=== PATIENT | female | born 1990 | race African-American/Black ===

== ENCOUNTER 2023-02-09 11:42 | Emergency (ER) | payer BC, OTHER, SELFPAY ==
[2023-02-09 12:02] VITALS: BP 118/69; PULSE 87; RESP 18; TEMP 37.1; O2SAT 97; BMI 37.6
--- NOTE | 2023-02-09 12:14 | ED.GENADULT ---
HPI - General Adult General Time Seen by Provider: 12:14 Date Seen: 02/09/23 Chief complaint: Unspecified Complaint, Adult Stated complaint: pains Time Seen by Provider: 02/09/23 12:13 Source: patient and RN notes reviewed Mode of arrival: ambulatory Limitations: no limitations History of Present Illness HPI narrative: This 33-year-old female is coming to the ER with pelvic pain, post coital bleeding. She had intercourse last night, blood afterwards, she states after intercourse she will have severe anal pain as well. She denies any rectal penetration. She has history of HPV, thinks maybe her last Pap smear was in 2000 but states the HPV was cleared. She has had a total of 4 pregnancies, 3 children and 1 miscarriage. Her youngest is a toddler, was born at [facility]. She does not have a primary provider. When she has the severe pain, feels like her temperature will go up but otherwise no temperatures. She did not try to go to a clinic, has taken nothing for the pain. Sometime she will note some sense of internal pain with urination, no external symptoms with urination. She is not on any contraceptives. Outside of the HPV, she states she has not had any STIs. She is , in a stable monogamous relationship per report. She does not believe there is a chance for . Did discuss with her that we will be checking this. Stressed to her that she is not using contraceptives and there is always risk for in that situation. It is important for me to know as that could pose more of an emergent condition that we could need to treat potentially. Related Data Home Medications Medication Instructions Recorded Confirmed No Known Home Medications 02/09/23 02/09/23 Allergies Allergy/AdvReac Type Severity Reaction Status Date / Time aspirin Allergy Unknown Verified 02/09/23 12:09 nitrofurantoin Allergy Unknown Verified 02/09/23 12:09 [From Macrobid] Review of Systems Status of ROS: Reports: 6 or more systems reviewed and unremarkable except as noted in History and below Exam Const: Vital Signs, click to edit/add: Vital Signs - 24 hr 02/09/23 12:02 02/09/23 14:03 Temperature 98.7 F Pulse Rate 76 Pulse Rate [Pulse Oximeter] 87 Respiratory Rate 18 18 Blood Pressure 114/61 Blood Pressure [Ri ght Upper Arm] 118/69 Pulse Oximetry 97 98 Oxygen Delivery Me thod Room Air This is a 33-year-old female seen in exam room 4. Unfortunately due to the volume and the acuity in the ED, we had no other rooms available for her. I cannot do a pelvic or even good visualization of the perineum in this room. She is sitting in the chair, looks comfortable, no apparent distress. Speech is normal. Sclera clear. CV regular rate and rhythm, no murmur, normal S1 and S2. Lungs are clear with good air entry. Abdomen exam is limited as a really cannot lie her flat but on palpation there is really no rebound or guarding. Cannot say that I can get good feel for any true masses. Cannot do a bimanual exam or any pelvic visualization at this time. I do not feel any inguinal masses or adenopathy but again exam is limited by a patient's positioning in this chair. Documenting provider has reviewed patient's vital signs: yes Course Course ED Course: There is no room to move her to a different bed with capacity for good examination beyond what I have done. Will get basic labs, confirm negative status. Will order pelvic ultrasound. I have also reviewed with her that she really needs to follow up in clinic, records may need to be obtained, she may need to be updated on Pap smear. This is not something that I can do through the ED nor is it necessary to do through the ED. will look for urine abnormalities as well. With the pelvic imaging and the labs, we can rule out some concerning emergent issues, and if stable, will need clinic follow-up. Reevaluation(s) Time of Reevaluation #1: 14:37 Reevaluation #1: Have reviewed the pelvic ultrasound. Overall it is normal, there were 2 small fibroids which I am doubtful at this point that are causing her symptoms. She does tell me that her periods have been irregular. We did review that these can grow as people age but I still am skeptical that these are causing her current symptoms. She is willing to follow up with [facility] where she can have a dedicated pelvic exam, Pap smear which sounds like it might be indicated. I a do wonder about her not having had a Pap smear since 2000 since she has had a more recent . In any event, we have found nothing emergent, this can be further worked up and evaluated in the clinic tomorrow. Vital Signs Vital signs: Initial Vital Signs Temperature 98.7 F 02/09/23 12:02 Temperature Source Temporal Artery Scan 02/09/23 12:02 Pulse Rate 87 02/09/23 12:02 Respiratory Rate 18 02/09/23 12:02 Blood Pressure 118/69 02/09/23 12:02 Blood Pressure Mean 85 02/09/23 12:02 Blood Pressure Position Sitting 02/09/23 12:02 Pulse Oximetry 97 02/09/23 12:02 Oxygen Delivery Method Room Air 02/09/23 12:02 Vital Signs Temperature 98.7 F 02/09/23 12:02 Pulse Rate 87 02/09/23 12:02 Respiratory Rate 18 02/09/23 12:02 Blood Pressure 118/69 02/09/23 12:02 Pulse Oximetry 97 02/09/23 12:02 Oxygen Delivery Method Room Air 02/09/23 12:02 Temperature 98.7 F 02/09/23 12:02 Pulse Rate 76 02/09/23 14:03 Respiratory Rate 18 02/09/23 14:03 Blood Pressure 114/61 02/09/23 14:03 Pulse Oximetry 98 02/09/23 14:03 Oxygen Delivery Method Room Air 02/09/23 12:02 Medical Decision Making Lab Data Lab results reviewed: Yes I reviewed the patient's lab results Labs: Lab Results 02/09/23 02/09/23 Range/Units 12:48 13:00 WBC 6.16 (4.50-11.00) K/uL RBC 4.75 (4.00-5.20) m/uL Hgb 12.5 (12.0-16.0) gm/dL Hct 39.5 (33.0-51.0) % MCV 83 (80-100) fL MCH 26 (26-34) pg MCHC 32 (32-36) gm/dL RDW Coeff of [place] 13.5 (11.5-15.5) % Plt Count 215 (140-440) K/uL Neut % (Auto) 47.4 (42.0-72.0) % Lymph % (Auto) 41.2 (20-44) % [place] % (Auto) 8.8 (0.0-11.0) % Eos % (Auto) 2.1 (0.0-7.0) % Baso % (Auto) 0.3 (0.0-3.0) % Neut # (Auto) 2.92 (1.7-7.0) K/uL Lymph # (Auto) 2.54 (0.90-2.90) K/uL [place] # (Auto) 0.50 (0.00-0.90) K/UL Eos # (Auto) 0.13 (0.00-0.50) K/uL Baso # (Auto) 0.02 (0.00-0.30) K/uL Abs Immat Gran (auto) 0.01 (0.00-0.30) K/uL Imm/Tot Granulo (auto) 0.2 % Sodium 141 (135-149) mmol/L Potassium 3.8 (3.6-5.1) mmol/L Chloride 102 (96-114) mmol/L Carbon Dioxide 26 (20-32) mmol/L Anion Gap 13 (7-15) mEq/L BUN 14 (5-24) mg/dL Creatinine 0.6 (0.5-1.5) mg/dL Estimated Creat Clear 98.75 Estimated GFR 120 ml/min Glucose 115 (60-115) mg/dL Calcium 9.1 (8.4-10.6) mg/dL C-Reactive Protein < 0.5 L (0.5-1.0) mg/dL Urine Color Yellow (Yellow) Urine Appearance Clear (Clear) Urine pH 7.0 (5.0-8.5) Ur Specific [place] 1.020 (1.000-1.030) Urine Protein Negative (Negative) Urine Glucose (UA) Negative (Negative) Urine Ketones Negative (Negative) Urine Blood Negative (Negative) Urine Nitrite Negative (Negative) Urine Bilirubin Negative (Negative) Urine Urobilinogen 0.2 (0.2-1.0) Ur Leukocyte Esterase Negative (Negative) Urine RBC 0-2 (0-2) Urine WBC 0-2 (0-5) Ur Squamous Epith Cells None (None-Few) Urine Bacteria None (None) Urine HCG, Qual Negative (Negative) Imaging Data US pelvis: Attestation: I have reviewed the pertinent imaging results. Radiologist's impression: Patient: PERRY MCKNIGHT Facility:?[facility] Patient ID:?[id number] Site Patient ID:?[id number]. Site :?[id number] Study:?US Pelvis TRANSVAGINAL-02/09/2023 12:54:04 PM Ordering Physician:Magdiel Shin Final Report: INDICATION: Pelvic pain, postcoital bleeding. COMPARISON: None. TECHNIQUE: 2D beard scale and color Doppler images were acquired of the pelvis using a transvaginal approach. FINDINGS: Sonographic images demonstrate a normal size and smooth outer contour of the uterus. The uterus is anteverted in position. The uterus measures 10.0 cm in length by 6.5 cm in AP diameter by 6.3 cm in transverse dimension. There is a 1.7 cm calcified subendometrial fibroid in the midline anterior uterine body and a 0.7 cm calcified intramural fibroid in the midline posterior uterine body. The endometrial lining measures 13 mm in composite thickness. No obvious cervical mass. The right ovary measures 3.4 x 2.6 x 2.7 cm and the left ovary measures 3.4 x 1.4 x 1.5 cm. The ovaries demonstrate normal arterial and venous blood flow on color Doppler analysis. Trace free fluid in the cul-de-sac. IMPRESSION: 1. Two small uterine fibroids. 2. Exam otherwise unremarkable. Dictated by Jonna Crespo MD @ 02/09/2023 2:13:15 PM (Electronic Signature) Critical Care Time Critical Care Time Critical Care Time: No Discharge Plan Discharge Clinical Impression: Postcoital bleeding, Pelvic pain Patient Disposition: Home, Self-Care Condition: Stable Instructions: Abnormal (Dysfunctional) Uterine Bleeding (ED), Pelvic Pain in Women (ED) Additional Instructions: Follow up appointment is scheduled at the [facility] on 02/10 with a 4:15pm appointment time. If you have any questions or need to reschedule, please call [phone]. [facility] [address] [place] [address] Recommend pelvic rest until you have been further evaluated by a OB Gyne. Can try some Tylenol or ibuprofen per bottle directions for pain management if needed. It is important that you follow-up tomorrow for this appointment. You may need further testing, possibly including a Pap smear. Activity Level: Activity as Tolerated Prescriptions: No Action No Known Home Medications Follow Up/Referrals: Provider,Not a Local [Primary Care Provider] - Stand Alone Forms: [facility] Info Instructions
--- NOTE | 2023-02-09 12:20 | CRLHL7_ITS ---
For Patients: As a result of the Century Cures Act, medical imaging exams and procedure reports are released immediately into your electronic medical record. You may view this report before your referring provider. If you have questions, please contact your health care provider. INDICATION: Pelvic pain, postcoital bleeding. COMPARISON: None. TECHNIQUE: 2D beard scale and color Doppler images were acquired of the pelvis using a transvaginal approach. FINDINGS: Sonographic images demonstrate a normal size and smooth outer contour of the uterus. The uterus is anteverted in position. The uterus measures 10.0 cm in length by 6.5 cm in AP diameter by 6.3 cm in transverse dimension. There is a 1.7 cm calcified subendometrial fibroid in the midline anterior uterine body and a 0.7 cm calcified intramural fibroid in the midline posterior uterine body. The endometrial lining measures 13 mm in composite thickness. No obvious cervical mass. The right ovary measures 3.4 x 2.6 x 2.7 cm and the left ovary measures 3.4 x 1.4 x 1.5 cm. The ovaries demonstrate normal arterial and venous blood flow on color Doppler analysis. Trace free fluid in the cul-de-sac. IMPRESSION: 1. Two small uterine fibroids. 2. Exam otherwise unremarkable. Dictated by Jonna Crespo MD @ 02/09/2023 2:13:15 PM (Electronically Signed)
[2023-02-09 13:03] LABS: Basophils Absolute Auto 0.02 K/uL (0.00-0.30); Basophils Percent Auto 0.3 % (0.0-3.0); Eosinophils Absolute Auto 0.13 K/uL (0.00-0.50); Eosinophils Percent Auto 2.1 % (0.0-7.0); Hematocrit 39.5 % (33.0-51.0); Hemoglobin* 12.5 gm/dL (12.0-16.0); Immature Granulocytes Abs Auto 0.01 K/uL (0.00-0.30); Immature Granulocytes Pct Auto 0.2 %; Lymphocytes Absolute Auto 2.54 K/uL (0.90-2.90); Lymphocytes Percent Auto 41.2 % (20-44); Mean Corpuscular HGB Conc 32 gm/dL (32-36); Mean Corpuscular Hemoglobin 26 pg (26-34); Mean Corpuscular Volume 83 fL (80-100); Monocytes Percent Auto 8.8 % (0.0-11.0); Neutrophils Absolute Auto 2.92 K/uL (1.7-7.0); Neutrophils Percent Auto 47.4 % (42.0-72.0); Platelet Count* 215 K/uL (140-440); RDW Coefficient of Variation % 13.5 % (11.5-15.5); Red Blood Count 4.75 m/uL (4.00-5.20); White Blood Count* 6.16 K/uL (4.50-11.00)
[2023-02-09 13:08] LABS: Slide Review Reflex No
[2023-02-09 13:08] LABS: Appearance Urine Clear (Clear); Bilirubin Urine Negative (Negative); Blood Urine Negative (Negative); Color Urine Yellow (Yellow); Glucose Urine Negative (Negative); Ketones Urine Negative (Negative); Leukocyte Esterase Urine Negative (Negative); Nitrite Urine Negative (Negative); Protein Urine Negative (Negative); Urobilinogen Urine 0.2 (0.2-1.0)
[2023-02-09 13:14] LABS: Chloride* 102 mmol/L (96-114); Potassium* 3.8 mmol/L (3.6-5.1); Sodium* 141 mmol/L (135-149)
[2023-02-09 13:16] LABS: Creatinine* 0.6 mg/dL (0.5-1.5); Est. Creatinine Clearance* 98.75; Estimated Glomerular Filt Rate 120 ml/min
[2023-02-09 13:17] LABS: Anion Gap 13 mEq/L (7-15); Blood Urea Nitrogen* 14 mg/dL (5-24); Carbon Dioxide* 26 mmol/L (20-32); Glucose* 115 mg/dL (60-115)
[2023-02-09 13:18] LABS: Calcium* 9.1 mg/dL (8.4-10.6)
[2023-02-09 13:18] LABS: RBC Urine 0-2 (0-2); WBC Urine 0-2 (0-5)
[2023-02-09 13:31] LABS: C Reactive Protein* < 0.5 mg/dL (0.5-1.0)
[2023-02-09 14:03] VITALS: BP 114/61; PULSE 76; RESP 18; O2SAT 98
[2023-02-09 14:11] LABS: Ur HCG Qualitative* Negative (Negative)
== END 2023-02-09 14:48 | disposition home or self-care (01) ==
PROVIDERS: Emergency Provider Family Medicine
DX: N93.0 Postcoital and contact bleeding (principal); R10.2 Pelvic and perineal pain
CPT/HCPCS: 36415; 76830; 80048; 81001; 81025; 85025; 86140; 93976; 99283; 99284

== ENCOUNTER 2023-02-10 16:35 | Outpatient (CLI) | payer BC, OTHER, SELFPAY ==
[2023-02-10 21:13] LABS: Chlamydia DNA Amplified* NOT DETECTED (No Detected); GC DNA Amplified* NOT DETECTED (No Detected)
== END 2023-02-10 16:36 | disposition home or self-care (01) ==
PROVIDERS: Visit Provider Physician Assistant
DX: N93.0 Postcoital and contact bleeding (principal)
CPT/HCPCS: 87109; 87491; 87591

== ENCOUNTER 2023-06-09 13:15 | Outpatient (RCR) | payer OTHER, BC, SELFPAY | END 2023-10-07 23:59 | disposition home or self-care (01) | PROVIDERS: PCP Podiatrist; Visit Provider Podiatrist | DX: M79.671 Pain in right foot (principal); Z87.828 Personal history of other (healed) physical injury and trauma; Z51.89 Encounter for other specified aftercare | CPT/HCPCS: 97110; 97112; 97161 ==

== ENCOUNTER 2023-08-07 21:47 | Emergency (ER) | payer BC, MEDICAID, SELFPAY ==
[2023-08-07 21:54] VITALS: BP 128/83; PULSE 78; RESP 16; TEMP 37.1; O2SAT 100; BMI 35.9
[2023-08-07 22:03] LABS: Appearance Urine Clear (Clear); Bilirubin Urine Negative (Negative); Blood Urine Negative (Negative); Color Urine Yellow (Yellow); Glucose Urine Negative (Negative); Ketones Urine Negative (Negative); Leukocyte Esterase Urine Negative (Negative); Nitrite Urine Negative (Negative); Protein Urine Negative (Negative); Urobilinogen Urine 0.2 (0.2-1.0)
--- NOTE | 2023-08-07 22:11 | ED_ITS ---
HPI - Abdominal Pain General Chief Complaint: Abdominal Pain Stated Complaint: Abdominal Pain Time Seen by Provider: 08/07/23 22:01 History of Present Illness HPI narrative: Patient is a 33-year-old woman who is 10 weeks with her 4th child. She has been having some dysuria for the last 3 weeks but no overt abdominal pain no incontinence no fever chills. She has had no vaginal bleeding. She has had no other related symptoms. Tonight she feels like her urine is more frequent and the dysuria remains. She otherwise feels well but is concerned about a urinary infection. Related Data Home Medications Medication Instructions Recorded Confirmed calcium polycarbophil 625 mg 1,250 mg PO BID PRN 03/28/23 03/28/23 tablet (FiberCon) Previous Rx's Medication Instructions Recorded lidocaine 5 % topical ointment 1 applic topical QID PRN pain #30 02/26/23 grams Allergies Allergy/AdvReac Type Severity Reaction Status Date / Time aspirin Allergy Unknown Verified 03/28/23 11:07 nitrofurantoin Allergy Unknown Verified 03/28/23 11:07 [From Macrobid] Review of Systems Status of ROS Reports: 10 or more systems reviewed and unremarkable except as noted in History and below PFSH PFSH Surgical History History of ?Z98.891 - History of uterine scar from previous surgery (ICD-10) Social History Narrative: , 3 children. Nonsmoker, no alcohol use Smoking Status: Never smoker Do you use any of these nicotine containing products: None Non-prescribed substance use: denies use Exam Narrative: Exam Narrative: EXAM GENERAL: Patient appears comfortable and well. EYES: No scleral icterus. LYMPH: No supraclavicular or cervical lymphadenopathy. SKIN: Visible skin seen during exam normal or with benign process only. EXT: No dependent lower extremity pedal edema. HEART: Regular rate and rhythm with no murmurs, rubs, or gallops. LUNGS: Clear to auscultation bilaterally with no crackles or wheezes. ABD: Soft, non tender, non distended. PSYCH: Good eye contact, speech is not pressured. Const: Vital Signs, click to edit/add: Vital Signs - 24 hr 08/07/23 21:54 Temperature 98.7 F Pulse Rate [Pulse Oximeter] 78 Respiratory Rate 16 Blood Pressure [Le ft Upper Arm] 128/83 Pulse Oximetry 100 Oxygen Delivery Me thod Room Air Course Course ED Course: Patient seen examined. UA ordered. Vital Signs Vital signs: Initial Vital Signs Temperature 98.7 F 08/07/23 21:54 Temperature Source Temporal Artery Scan 08/07/23 21:54 Pulse Rate 78 08/07/23 21:54 Respiratory Rate 16 08/07/23 21:54 Blood Pressure 128/83 08/07/23 21:54 Blood Pressure Mean 98 08/07/23 21:54 Blood Pressure Position Sitting 08/07/23 21:54 Pulse Oximetry 100 08/07/23 21:54 Oxygen Delivery Method Room Air 08/07/23 21:54 Vital Signs Temperature 98.7 F 08/07/23 21:54 Pulse Rate 78 08/07/23 21:54 Respiratory Rate 16 08/07/23 21:54 Blood Pressure 128/83 08/07/23 21:54 Pulse Oximetry 100 08/07/23 21:54 Oxygen Delivery Method Room Air 08/07/23 21:54 Temperature 98.7 F 08/07/23 21:54 Pulse Rate 78 08/07/23 21:54 Respiratory Rate 16 08/07/23 21:54 Blood Pressure 128/83 08/07/23 21:54 Pulse Oximetry 100 08/07/23 21:54 Oxygen Delivery Method Room Air 08/07/23 21:54 MDM - Abdominal Pain MDM Narrative Medical decision making narrative: Patient is a 33-year-old woman and currently with her 4th child. She comes in with dysuria and her urinalysis is unremarkable. My exam is normal her vital signs are normal. She has no tenderness to palpation of her abdomen and no vaginal bleeding or discharge. At this time reassurance is offered. Differential diagnosis includes but not limited to pyelonephritis urinary tract infection complication overt abdominal pain. Lab Data Labs: Lab Results 08/07/23 Range/Units 21:57 Urine Color Yellow (Yellow) Urine Appearance Clear (Clear) Urine pH 6.0 (5.0-8.5) Ur Specific [place] 1.020 (1.000-1.030) Urine Protein Negative (Negative) Urine Glucose (UA) Negative (Negative) Urine Ketones Negative (Negative) Urine Blood Negative (Negative) Urine Nitrite Negative (Negative) Urine Bilirubin Negative (Negative) Urine Urobilinogen 0.2 (0.2-1.0) Ur Leukocyte Esterase Negative (Negative) Urine RBC 0-2 (0-2) Urine WBC 0-2 (0-5) Ur Squamous Epith Cells Few (None-Few) Urine Bacteria None (None) Discharge Plan Discharge Clinical Impression: Patient Disposition: Home, Self-Care Condition: Stable Instructions: at 11 to 14 Weeks (ED) Additional Instructions: Follow-up with your OBGYN this week. Activity Level: No Restrictions Discharge Diet: Regular Prescriptions: No Action lidocaine 5 % ointment 1 applic topical QID PRN (Reason: pain) Qty: 30 0RF calcium polycarbophil [FiberCon] 625 mg tablet 1,250 mg PO BID PRN Follow Up/Referrals: Provider,Not a Local [Primary Care Provider] - Stand Alone Forms: My[facility] Info Instructions
[2023-08-07 22:28] LABS: RBC Urine 0-2 (0-2); Squamous Epithelial Cell Urine Few (None-Few); WBC Urine 0-2 (0-5)
== END 2023-08-07 22:37 | disposition home or self-care (01) ==
PROVIDERS: Emergency Provider Internal Medicine
DX: R30.0 Dysuria (principal); Z3A.10 10 weeks gestation of pregnancy
CPT/HCPCS: 81001; 99283

== ENCOUNTER 2024-02-03 08:21 | Outpatient (CLI) | payer BC, MEDICAID, SELFPAY | END 2024-02-03 08:22 | disposition home or self-care (01) | LOC: AMB 02-06 17:13 | PROVIDERS: Visit Provider Family Medicine | DX: O60.10X0 Preterm labor with preterm delivery, unspecified trimester, not applicable or unspecified (principal); Z3A.37 37 weeks gestation of pregnancy | CPT/HCPCS: A0425; A0427 ==

== ENCOUNTER 2024-08-01 20:24 | Emergency (ER) | payer BC, MEDICAID, SELFPAY ==
--- OUTSIDE RECORDS SUMMARY | 2024-08-01 20:27 | XMS_ITS | Encounter Summary ---
Author Organization [facility] Address [address] [place] [address]. [place] [address] Care Team Providers Care Salsa Dance Instructor Name Role Phone Tejal Chen APRN INDUSTRIAL AUTOMATION ENGINEER Unavaila ble Balbir Talamantes MD Unavailable [phone] Geremias Blackwell MD Primary Care Provider [phone] Geremias Blackwell MD Unavailable [phone] Kwame Chandler MD Unavailable [phone] Kwame Chandler MD Unavailable [phone] Althea Carroll NP Unavailable Michelle Dasilva RN Unavailable Unavailab le Encounter Details Date Type Department Care Team (Late st Contact Info) Description 08/26/2023 [facility] Medical Advice [facility] [address] [place] [phone] Rowan Shelton, RN Social History Tobacco Use Types Packs/Day Years Used Date Smoking Tobacco: Never Smokeless Tobacco: Never Alcohol Use Standard Drinks/Week Comments No 0 (1 standard drink = 0.6 oz pur e alcohol) AUDIT-C Answer Date Recorded Frequency of Alcohol Consumption Never 07/08/2018 Average Number of Drinks Not on file 019 Frequency of Binge Drinking Not on file 06/12 PHQ-2 Answer Date Recorded PHQ-2 Score 0 04/08/2022 [place] Depression Scale Answer Date Recorded Last EPDS Total Score Not on file 06/28/2021 The thought of harming myself has occurred to me . 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 Not on file Not on file documented as of this encounter Plan of Treatment Not on file documented as of this encounter Visit Diagnoses Not on filedocumented in this encounter Additional Health Concerns Infection Onset Date Last Indicated Resolved Time Rule Out COVID-19 10/23/2023 10/23/2023 10/24/2023 11:55 AM CDT Assessment Noted Time PHQ-9 Depression Total Score: 5 08/10/19 22 4:13 PM CDT documented as of this encounter Care Teams Salsa Dance Instructor Relationship Specialty Start Date End Date Geremias Blackwell MD [address] [place] [address] [address] [place] [phone] PCP - General Internal Medicine 04/08/22 Tejal Chen APRN INDUSTRIAL AUTOMATION ENGINEER [address] [place] [address] [address] [place], [place] [id number] Nurse Practitioner Nurse Practitioner 04/29/19 Balbir Talamantes MD [address] [place], [place] [address] Neurology 07/20/20 Geremias Blackwell MD [address] [place] [address] [address] [place] [phone] Assigned PCP 04/19/22 Kwame Chandler MD [address] [facility] [address] [place] [address] judicial assistant 08/25/23 Kwame Chandler MD [address] [facility] [address] [place] [address] Assigned OBGYN Provider 10/04/23 Althea Carroll NP [address] [place] [address] [id number] [place] [address] Assigned Pediatric Specialist Provider 02/03/24 Michelle Dasilva, RN Lead Architect [employer] 02/08/24 02/22/24 documented as of this encounter
--- OUTSIDE RECORDS SUMMARY | 2024-08-01 20:27 | XMS_ITS | Encounter Summary ---
Author Organization [facility] Address [address] [place] [address] Care Team Providers Care Women Specialist Name Role Phone Kwame Chandler MD Primary Care Provider + [phone] Tejal Chen APRN CASE MANAGERS Unavaila ble Kwame Chandler MD Unavailable + [phone] Torri Donis PA-C Unavailable [phone] Balbir Talamantes MD Unavailable [phone] Jimmy Ayala MD Unavailable Karolina Zhao-C Unavailable Catracho Domingo MD Unavailable Unavailable Karolina ZhaoC Unavailable Nevaeh Gutierres-C Unavailable [phone] Geremias Blackwell MD Primary Care Provider [phone] Geremias Blackwell MD Unavailable [phone] Kwame Chandler MD Unavailable + [phone] Kwame Chandler MD Unavailable + 11 Althea Carroll NP Unavailable Michelle Dasilva RN Unavailable Unavailab le Encounter Details Date Type Department Care Team (Late st Contact Info) Description 02/17/2021 Documentation Only INTERFACED REPORT Unknown, Provider Social History Tobacco Use Types Packs/Day Years Used Date Smoking Tobacco: Never Smokeless Tobacco: Never Alcohol Use Standard Drinks/Week Comments No 0 (1 standard drink = 0.6 oz pur e alcohol) AUDIT-C Answer Date Recorded Frequency of Alcohol Consumption Never 07/08/2018 Average Number of Drinks Not on file 019 Frequency of Binge Drinking Not on file 06/12 PHQ-2 Answer Date Recorded PHQ-2 Score 4 03/31/2024 [place] Depression Scale Answer Date Recorded [place] Depression Scale Total 13 03/28/2024 The thought of harming myself has occurred to me . Hardly ever 03/28/2024 Adolescent Education Answer Date Record ed Getting School Help Needed Not on file 01/02 Food Insecurity Answer Date Recorded Within the past 12 months, d id you worry that your food would run out before you got money to buy more? No 02/03/2024 Within the past 12 months, d id the food you bought just not last and you didn t have money to get more? No 02/03/2024 Housing Stability Answer Date Recorded Do you have housing? (Lisandra g is defined as stable permanent housing and does not include staying ouside in a car, in a tent, in an abandoned building, in an overnight mcc, or couch-surfing.) No 02/03/2024 Are you worried about losing your housing? No 02/03/2024 Financial Resource Strain Answer Date R ecorded Within the past 12 months, h ave you or your family members you live with been unable to get utilities (heat, electricity) when it was really needed? No 02/03/2024 Transportation Needs Answer Date Record ed Within the past 12 months, h as lack of transportation kept you from medical appointments, getting your medicines, non-medical meetings or appointments, work, or from getting things that you need? No 02/03/2024 Interpersonal Safety Answer Date Record ed Do you feel physically and e motionally safe where you currently live? Yes 02/03/2024 Within the past 12 months, h ave you been hit, slapped, kicked or otherwise physically hurt by someone? No 02/03/2024 Within the past 12 months, h ave you been humiliated or emotionally abused in other ways by your partner or ex-partner? 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 No / Unsure 04/08/2022 10:39 AM PRINCIPAL SYSTEMS ENGINEER documented as of this encounter Plan of Treatment Not on file documented as of this encounter Visit Diagnoses Not on filedocumented in this encounter Additional Health Concerns Infection Onset Date Last Indicated Resolved Time Rule Out COVID-19 10/23/2023 10/23/2023 10/24/2023 11:55 AM CDT documented as of this encounter Care Teams Women Specialist Relationship Specialty Start Date End Date Kwame Chandler MD PCP - General sap fico business analyst 12/08/18 04/07/22 Geremias Blackwell MD [address] [place] [address] 220 [place] [address] PCP - General Internal Medicine 04/08/22 Tejal Chen APRN CASE MANAGERS [address] [place] [address] 450 [place], [place] [address] Nurse Practitioner Nurse Practitioner 04/29/19 Kwame Chandler MD Assigned OBGYN Provider 02/03/20 Torri Donis, PALeidyC [address] 315 [place] [address] Assigned Surgical Provider 06/27/20 07/27/21 Balbir Talamantes MD 909 [place] [address] Neurology 07/20/20 Jimmy Ayala MD [address] [place] [address] Assigned Neuroscience Provider 07/29/20 01/24/22 Karolina Zhao PA-C [address] [place] [address] Assigned PCP 11/18/20 03/16/21 Catracho Domingo MD Assigned PCP 03/17/21 04/13/21 Karolina Zhao PA-C [address] [place] [address] Assigned PCP 04/14/21 04/18/22 Nevaeh Gutierres PA-C [facility] [address] [place] [address] Assigned Neuroscience Provider 01/25/22 06/06/22 Geremias Blackwell MD [address] [place] [address] 220 [place] [address] Assigned PCP 04/19/22 Kwame Chandler MD [address] [facility] 100 [place] [address] sap fico business analyst 08/25/23 Kwame Chandler MD [address] [facility] [address] [place] [address] Assigned OBGYN Provider 10/04/23 Althea Carroll NP [address] [place] [address] [address] [place] [address] Assigned Pediatric Specialist Provider 02/03/24 Michelle Dasilva, RN Lead Colorman 02/08/24 02/22/24 documented as of this encounter
--- OUTSIDE RECORDS SUMMARY | 2024-08-01 20:27 | XMS_ITS | Encounter Summary ---
Author Organization [facility] Address [address] [place] [address] Care Team Providers Care Arc Air Operator Name Role Phone Kwame Chandler MD Primary Care Provider [phone] Tejal Chen APRN DRILL INSTRUCTOR Unavaila ble Cheyenne Yeh BUSINESS DEVELOPMENT INTERN Unavailable [phone] Jennifer Cain CHW Unavailable [phone] Shruthi Alberto Unavailable Unavailable Kwame Chandler MD Unavailable [phone] Torri DonisC Unavailable [phone] Balbir Talamantes MD Unavailable [phone] Jimym Ayala MD Unavailable Catracho Domingo MD Unavailable Unavailable Chelsie Gallardo APRN DRILL INSTRUCTOR Unavailable Un available Karolina ZhaoC Unavailable Catracho Domingo MD Unavailable Unavailable Karolina ZhaoC Unavailable Nevaeh Gutierres-C Unavailable [phone] Geremias Blackwell MD Primary Care Provider Geremias Blackwell MD Unavailable [phone] Kwame Chandler MD Unavailable [phone] Kwame Chandler MD Unavailable [phone] Althea Carroll NP Unavailable Michelle Dasilva RN Unavailable Unavailab le Encounter Details Date Type Department Care Team (Late st Contact Info) Description 08/27/2019 MyC Medical Advice [facility]'s [facility] [address] [place] [address] Kwame Chandler MD [address] [place] [address] Social History Tobacco Use Types Packs/Day Years Used Date Smoking Tobacco: Never Smokeless Tobacco: Never Alcohol Use Standard Drinks/Week Comments No 0 (1 standard drink = 0.6 oz pur e alcohol) AUDIT-C Answer Date Recorded Frequency of Alcohol Consumption Never 07/08/2018 Average Number of Drinks Not on file 019 Frequency of Binge Drinking Not on file 06/12 PHQ-2 Answer Date Recorded PHQ-2 Score 2 06/16/2019 [place] Depression Scale Answer Date Recorded [place] Depression Score 15 01/07/2019 Last EPDS Self Harm Result Not on file 01/07 Comments No Sex and Gender Information Value Date Recorded Sex Assigned at Female 07/10/2018 9:24 AM CDT Legal Sex Female 8:37 AM CDT Gender Identity Female 07/10/2018 9:24 AM CDT Sexual Orientation Choose not to disclose 2018 9:24 AM CDT 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 No / Unsure 08/30/2019 12:51 PM CDT documented as of this encounter Plan of Treatment Not on file documented as of this encounter Visit Diagnoses Not on filedocumented in this encounter Additional Health Concerns Infection Onset Date Last Indicated Resolved Time Rule Out COVID-19 10/23/2023 10/23/2023 10/24/2023 11:55 AM CDT documented as of this encounter Care Teams Arc Air Operator Relationship Specialty Start Date End Date Kwame Chandler MD PCP - General senior staff psychologist 12/08/18 04/07/22 Geremias Blackwell MD [address] [place] [address] PCP - General Internal Medicine 04/08/22 Tejal Chen, RISK CONTROL FIELD REPRESENTATIVE DRILL INSTRUCTOR [address] [id number] Nurse Practitioner Nurse Practitioner 04/29/19 Cheyenne Yeh, BUSINESS DEVELOPMENT INTERN [address] [id number] Lead Control Equipment Electrician Primary Care - CC 01/27/2003/13 Jennifer Cain, [facility] Community Health Worker Primary Care - CC 01/27/20 Shruthi Alberto Other (see comments) 01/30/20 03/25/20 Kwame Chandler MD Assigned OBGYN Provider 02/03/20 Torri Donis, PA-C [address] [place] [address] Assigned Surgical Provider 06/27/20 07/27/21 Balbir Talamantes MD [address] [place] [address] Neurology 07/20/20 Jimmy Ayala MD [address] [place] [address] Assigned Neuroscience Provider 07/29/20 01/24/22 Catracho Domingo MD Assigned PCP 06/21/20 10/25/20 Chelsie Gallardo APRN DRILL INSTRUCTOR Assigned PCP 10/26/20 11/17/20 Karolina Zaho PA-C [address] [place] [address] Assigned PCP 11/18/20 03/16/21 Catracho Domingo MD Assigned PCP 03/17/21 04/13/21 aKrolina Zhao PA-C [address] [place] [address] Assigned PCP 04/14/21 04/18/22 Nevaeh Gutierres PA-C [facility] [address] [place] [address] Assigned Neuroscience Provider 01/25/22 06/06/22 Geremias Blackwell MD [address] [place] [address] 220 [place] [address] Assigned PCP 04/19/22 Kwame Chandler MD [address] [address] senior staff psychologist 08/25/23 Kwame Chandler MD [address] [address] Assigned OBGYN Provider 10/04/23 Althea Carroll NP [address] [place] [address] [address] [place] [address] Assigned Pediatric Specialist Provider 02/03/24 Michelle Dasilva, RN Lead Control Equipment Electrician 02/08/24 02/22/24 documented as of this encounter
--- OUTSIDE RECORDS SUMMARY | 2024-08-01 20:27 | XMS_ITS | Encounter Summary ---
Author Organization [facility] Address [address] [place] [address]. [place] [address] Care Team Providers Care Sleeping Bag Filler Name Role Phone Tejal Chen APRN CODING QUALITY ANALYST Unavaila ble Balbir Talamantes MD Unavailable [phone] Geremias Blackwell MD Primary Care Provider [phone] Geremias Blackwell MD Unavailable [phone] Kwame Chandler MD Unavailable [phone] Kwame Chandler MD Unavailable [phone] Althea Carroll NP Unavailable Michelle Dasilva RN Unavailable Unavailab le Encounter Details Date Type Department Care Team (Late st Contact Info) Description 08/26/2023 [facility] Medical Advice [facility] Women's [address] [place] [address] Ivelisse Burnett, RN Social History Tobacco Use Types Packs/Day [...] Answer Date Recorded PHQ-2 Score 0 04/08/2022 [place] Depression Scale Answer Date Recorded Last EPDS [...] 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 Not [...] documented as of this encounter Care Teams Sleeping Bag Filler Relationship Specialty Start Date End Date Geremias Blackwell MD [address] [place] [address] 220 [place] [address] PCP - General Internal Medicine 04/08/22 Tejal Chen APRN CODING QUALITY ANALYST 420 [facility] 450 [place], [place] [address] Nurse Practitioner Nurse Practitioner 04/29/19 Balbir Talamantes MD 909 [place], [place] [address] Neurology 07/20/20 Geremias Blackwell MD [address] [place] [address] 220 [place] [address] Assigned PCP 04/19/22 Kwame Chandler MD [facility] [address] [facility] 100 [place] [address] surveyor's assistant 08/25/23 Kwame Chandler MD [address] [facility] 100 [place] [address] Assigned OBGYN Provider 10/04/23 Althea Carroll NP [address] [place] [address] [address] [place] [address] Assigned Pediatric Specialist Provider 02/03/24 Michelle Dasilva, RN Lead Oven Technician 02/08/24 02/22/24 documented as of this encounter
--- OUTSIDE RECORDS SUMMARY | 2024-08-01 20:27 | XMS_ITS | Encounter Summary ---
Author Organization [facility] Address [address] [place] [address]. [place] [address] Care Team Providers Care Instruction Dean Name Role Phone Tejal Chen APRN INSTALLATION TECHNICIAN Unavaila ble Balbir Talamantes MD Unavailable [phone] Geremias Blackwell MD Primary Care Provider [phone] Geremias Blackwell MD Unavailable [phone] Kwame Chandler MD Unavailable [phone] Kwame Chandler MD Unavailable [phone] Althea Carroll NP Unavailable Reason for Visit * Reason Onset Date Comments Pt. Information/instruction 06/01/2024 Encounter Details Date Type Department Care Team (Late st Contact Info) Description 06/01/2024 Telephone [facility] [address] [place] [address] Kwame Chandler MD [address] [place] [address] Pt. Information/instructio n Social History Tobacco Use Types Packs/Day Years [...] Answer Date Recorded PHQ-2 Score 4 03/31/2024 [place] Depression Scale Answer Date Recorded [place] Depression Scale Total 13 03/28/2024 The thought [...] in an abandoned building, in an overnight long term, or couch-surfing.) No 02/03/2024 Are you worried [...] your partner or ex-partner? No 02/03/2024 Comments No Sex and Gender Information Value Date Recorded Sex Assigned at Female 07/10/2018 9:24 AM CDT Legal Sex Female 8:37 AM CDT Gender Identity Female 07/10/2018 9:24 AM CDT Sexual Orientation Choose not to disclose 2018 9:24 AM CDT Occupation Industry Job Start Date Job End Date [employer] Not on file Not on file Not on file documented as of this encounter Miscellaneous Notes * Telephone Encounter - Ira Gale - 06/01/2024 1:14 PM CST [facility] Phone Message May a detailed message be left on voicemail: yes Reason for Call: Kalina from [facility] uzma wanting to leave her contact info regarding pt if clinic has any case management needs. Number [phone] and fax [phone]. Thanks Action Taken: Message routed to: Other: [facility] Travel Screening: Not Applicable GER APPLICATION documented in this encounter Plan of Treatment Not on file documented as of this encounter Visit Diagnoses Not on filedocumented in this encounter Additional Health Concerns Assessment Noted Time PHQ-9 Depression Total Score: 17 024 11:20 AM MANAGER APPLICATION documented as of this encounter Care Teams Instruction Dean Relationship Specialty Start Date End Date Geremias Blackwell MD [address] [place] [address] 220 [place] [address] PCP - General Internal Medicine 04/08/22 Tejal Chen APRN INSTALLATION TECHNICIAN [address] [place] [address] 450 [place], [place] [address] Nurse Practitioner Nurse Practitioner 04/29/19 Balbir Talamantes MD 909 [place], [place] [address] Neurology 07/20/20 Geremias Blackwell MD [address] [place] [address] 220 [place] [address] Assigned PCP 04/19/22 Kwame Chandler MD [address] [facility] 100 [place] [address] bow maker machine tender 08/25/23 Kwame Chandler MD [address] [address] Assigned OBGYN Provider 10/04/23 [place] [address] [place] [address] [address] [place] [address] Assigned Pediatric Specialist Provider 02/03/24 documented as of this encounter
--- OUTSIDE RECORDS SUMMARY | 2024-08-01 20:27 | XMS_ITS | Encounter Summary ---
Author Organization [facility] Address [address] [place] [address]. [place] [address] Care Team Providers Care Machinist Name Role Phone Tejal Chen APRN REFRIGERATOR CRATER Unavaila ble Balbir Talamantes MD Unavailable [phone] Geremias Blackwell MD Primary Care Provider [phone] Geremias Blackwell MD Unavailable [phone] Kwame Chandler MD Unavailable [phone] Kwame Chandler MD Unavailable [phone] Althea Carroll NP Unavailable Michelle Dasilva RN Unavailable Unavailab le Encounter Details Date Type Department Care Team (Late st Contact Info) Description 11/25/2023 [facility] Medical Advice [facility] [address] [place] [address] Ivelisse Burnett, RN Social History Tobacco Use [...] PHQ-2 Answer Date Recorded PHQ-2 Score 0 09/25/2023 [place] Depression Scale Answer Date Recorded Last EPDS [...] Industry Job Start Date Job End Date [employer] Not on file Not on file Not on file documented as of this encounter Plan of Treatment Not on file documented as of this encounter Visit Diagnoses Not on filedocumented in this encounter Additional Health Concerns Assessment Noted Time PHQ-9 Depression Total Score: 5 08/10/19 22 4:13 PM CDT documented as of this encounter Care Teams Machinist Relationship Specialty Start Date End Date Geremias Blackwell MD [address] [place] [address] 220 [place] [phone] PCP - General Internal Medicine 04/08/22 Tejal Chen APRN REFRIGERATOR CRATER [address] [place] [address] 450 [place], [place] [address] Nurse Practitioner Nurse Practitioner 04/29/19 Balbir Talamantes MD 909 [place], [place] [address] Neurology 07/20/20 Geremias Blackwell MD [address] [place] [address] 220 [place] [address] Assigned PCP 04/19/22 Kwame Chandler MD [address] [facility] 100 [place] [address] trade union secretary 08/25/23 Kwame Chandler MD [address] [facility] [address] [place] [address] Assigned OBGYN Provider 10/04/23 Althea Carroll NP [address] [id number] [place], [place] [address] Assigned Pediatric Specialist Provider 02/03/24 Michelle Dasilva, RN Lead Paper Machine Tender 02/08/24 02/22/24 documented as of this encounter
--- OUTSIDE RECORDS SUMMARY | 2024-08-01 20:27 | XMS_ITS | Encounter Summary ---
Author Organization [facility] Address [address] [place] [address] Care Team Providers Care Psychiatric Technician Assistant Name Role Phone Kwame Chandler MD Primary Care Provider + [phone] Tejal Chen APRN SALES PRODUCT MANAGER Unavaila ble Kwame Chandler MD Unavailable + [phone] Torri Donis PA-C Unavailable [phone] Balbir Talamantes MD Unavailable [phone] Jimmy Ayala MD Unavailable Catracho Domingo MD Unavailable Unavailable Chelsie Gallardo APRN SALES PRODUCT MANAGER Unavailable Un available Karolina ZhaoC Unavailable Catracho Domingo MD Unavailable Unavailable Karolina Zhao-C Unavailable Nevaeh Gutierres PA-C Unavailable [phone] Geremias Blackwell MD Primary Care Provider [phone] Geremias Blackwell MD Unavailable [phone] Kwame Chandler MD Unavailable + [phone] Kwame Chandler MD Unavailable + 11 Althea Carroll NP Unavailable Michelle Dasilva RN Unavailable Unavailab le Encounter Details Date Type Department Care Team (Late st Contact Info) Description 08/27/2020 MyC Medical Advice [facility] [address] [facility] [address] [place] [address] Kisha Pennington RN Social History Tobacco Use Types Packs/Day [...] PHQ-2 Answer Date Recorded PHQ-2 Score 0 07/11/2020 [place] Depression Scale Answer Date Recorded [place] Depression Score 15 01/07/2019 Last EPDS Self [...] have Coronavirus / COVID-19? No / Unsure 08/29/2020 1:18 PM CDT documented as of this encounter Plan of Treatment Not on file documented as of this encounter Visit Diagnoses Not on filedocumented in this encounter Additional Health Concerns Infection Onset Date Last Indicated Resolved Time Rule Out COVID-19 10/23/2023 10/23/2023 10/24/2023 11:55 AM CDT documented as of this encounter Care Teams Psychiatric Technician Assistant Relationship Specialty Start Date End Date Kwame Chandler MD PCP - General mechanic sound technician 12/08/18 04/07/22 Geremias Blackwell MD [address] [place] [address] [address] [place] [address] PCP - General Internal Medicine 04/08/22 Tejal Chne APRN SALES PRODUCT MANAGER [address] [place] [address] 450 [place] [address] Nurse Practitioner Nurse Practitioner 04/29/19 Kwame Chandler MD Assigned OBGYN Provider 02/03/20 Torri Donis PA-C [address] 315 [place] [address] Assigned Surgical Provider 06/27/20 07/27/21 Balbir Talamantes MD [address] [place] [address] Neurology 07/20/20 Jimmy Ayala MD 6545 [place] [address] Assigned Neuroscience Provider 07/29/20 01/24/22 Catracho Domingo MD Assigned PCP 06/21/20 10/25/20 Chelsie Gallardo APRN SALES PRODUCT MANAGER Assigned PCP 10/26/20 11/17/20 Karolina Zhao PA-C [address] [place] [address] Assigned PCP 11/18/20 03/16/21 Catracho Domingo MD Assigned PCP 03/17/21 04/13/21 Karolina Zhao PA-C [address] [place] [address] Assigned PCP 04/14/21 04/18/22 Nevaeh Gutierres PA-C [facility] [address] [facility] [place] [address] Assigned Neuroscience Provider 01/25/22 06/06/22 Geremias Blackwell MD [address] [place] [address] 220 [place] [address] Assigned PCP 04/19/22 Kwame Chandler MD [address] [address] mechanic sound technician 08/25/23 Kwame Chandler MD [address] [address] Assigned OBGYN Provider 10/04/23 Althea Carroll NP [facility] [place] [address] [place], [place] [address] Assigned Pediatric Specialist Provider 02/03/24 Michelle Dasilva, RN Lead Cafe Worker 02/08/24 02/22/24 documented as of this encounter
--- OUTSIDE RECORDS SUMMARY | 2024-08-01 20:27 | XMS_ITS | Encounter Summary ---
Author Organization [facility] Address [address] [place] [address] Care Team Providers Care Rehabilitation Aide Name Role Phone Kwame Chandler MD Primary Care Provider [phone] Tejal Chen APRN IT HELP DESK ASSOCIATE Unavaila ble Cheyenne Yeh POLYGRAPH EXAMINER Unavailable [phone] Jennifer Cain CHW Unavailable [phone] Shruthi Alberto Unavailable Unavailable Kwame Chandler MD Unavailable [phone] Torri DonisC Unavailable [phone] Balbir Talamantes MD Unavailable [phone] Jimmy Ayala MD Unavailable Catracho Domingo MD Unavailable Unavailable Chelsie Gallardo APRN IT HELP DESK ASSOCIATE Unavailable Un available Karolina ZhaoC Unavailable Catracho Domingo MD Unavailable Unavailable Karolina ZhaoC Unavailable Nevaeh Gutierres-C Unavailable [phone] Geremias Blackwell MD Primary Care Provider Geremias Blackwell MD Unavailable [phone] Kwame Chandler MD Unavailable [phone] Kwame Chandler MD Unavailable [phone] Althea Carroll NP Unavailable Michelle Dasilva RN Unavailable Unavailab le Encounter Details Date Type Department Care Team (Late st Contact Info) Description 09/12/2019 MyC Medical Advice [facility] [address] [facility] [address] 4th [place] [address] Tejal Chen, LB IT HELP DESK ASSOCIATE [address] [place] [address] [facility] [address] [place] [address] Social History Tobacco Use Types Packs/Day Years [...] Answer Date Recorded PHQ-2 Score 2 06/16/2019 Warsaw Depression Scale Answer Date Recorded Warsaw Depression Score 15 01/07/2019 Last EPDS Self [...] have Coronavirus / COVID-19? No / Unsure 09/12/2019 2:51 PM CDT documented as of this encounter Plan of Treatment Not on file documented as of this encounter Visit Diagnoses Not on filedocumented in this encounter Additional Health Concerns Infection Onset Date Last Indicated Resolved Time Rule Out COVID-19 10/23/2023 10/23/2023 10/24/2023 11:55 AM CDT documented as of this encounter Care Teams Rehabilitation Aide Relationship Specialty Start Date End Date Kwame Chandler MD PCP - General crime investigator special agent 12/08/18 04/07/22 Geremias Blackwell MD [address] [place] [address] PCP - General Internal Medicine 04/08/22 Tejal Chen, PLASTER HELPER IT HELP DESK ASSOCIATE [address] [id number] Nurse Practitioner Nurse Practitioner 04/29/19 Cheyenne Yeh, POLYGRAPH EXAMINER [address] [address] Lead Professional Bass Fisherman Primary Care - CC 01/27/2003/13 Jennifer Cain, [facility] Community Health Worker Primary Care - CC 01/27/20 Shruthi Alberto Other (see comments) 01/30/20 03/25/20 Kwame Chandler MD Assigned OBGYN Provider 02/03/20 Torri Donis, PA-C [address] [place] [address] Assigned Surgical Provider 06/27/20 07/27/21 Balbir Talamantes MD [address] [place] [address] [id number] Neurology 07/20/20 Jimmy Ayala MD [address] [place] [address] Assigned Neuroscience Provider 07/29/20 01/24/22 Catracho Domingo MD Assigned PCP 06/21/20 10/25/20 Chelsie Gallardo APRN IT HELP DESK ASSOCIATE Assigned PCP 10/26/20 11/17/20 Karolina Zhao PA-C [address] [place] [address] Assigned PCP 11/18/20 03/16/21 Catracho Domingo MD Assigned PCP 03/17/21 04/13/21 Karolina Zhao PA-C [address] [place] [address] Assigned PCP 04/14/21 04/18/22 Nevaeh Gutierres PA-C [facility] [address] [facility] [place] [address] Assigned Neuroscience Provider 01/25/22 06/06/22 Geremias Blackwell MD [address] [place] [address] [address] [place] [phone] Assigned PCP 04/19/22 Kwame Chandler MD [address] [address] crime investigator special agent 08/25/23 Kwame Chandler MD [address] [address] Assigned OBGYN Provider 10/04/23 Althea Carroll NP [address] [place] [address] [address] [place] [address] Assigned Pediatric Specialist Provider 02/03/24 Michelle Dasilva RN Lead Professional Bass Fisherman 02/08/24 02/22/24 documented as of this encounter
--- OUTSIDE RECORDS SUMMARY | 2024-08-01 20:27 | XMS_ITS | Clinical Summary ---
Author Organization [facility] Address [address] [place] [address] Care Team Providers Care Floor Associate Name Role Phone Tejal Chen APRN LABOR RELATIONS MANAGER Unavaila ble Balbir Talamantes MD Unavailable [phone] Geremias Blackwell MD Primary Care Provider [phone] Geremias Blackwell MD Unavailable [phone] Kwame Chandler MD Unavailable [phone] Kwame Chandler MD Unavailable [phone] Althea Carroll NP Unavailable Allergies Active Allergy Reactions Criticality Noted Date Comments Aspirin Other (See Comments) 07/08/2018 Hx G6P Deficiency Nitrofurantoin Other (See Comments) 07/08/2018 Hx G6P Deficiency Sulfa Antibiotics Other (See Comments) 07/09/19 19 Hx G6P Deficiency Medications Vit-Fe Fumarate-FA (PNV PLUS MULTIVITAMIN) 27-1 MG TABS per tablet Take 1 tablet by mouth daily Active Misc. Devices (BREAST PUMP) MISCIndications: problem in 1 each daily as needed. 1 each 03/28/2024 Active sertraline (ZOLOFT) 25 MG tabletIndication s: depression Take 1 tablet (25 mg) by mouth daily. 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 with anal pain of unclear etiology. Symptoms consistent with possible anal fissure (not seen on exam today). Will initiate a high-fiber diet (~30 grams of fiber/day), the use of a fiber supplement twice daily and increased liquid intake. Topical lidocaine jelly and sitz baths may be used for comfort. If compliant with therapy and still symptomatic in 1-2 weeks, the patient is to return to clinic for reevaluation. If at any time things are heading the wrong direction, the patient is to call us and we can arrange for re-evaluation. We would consider imaging or examination under anesthesia if warranted. They are aware that we must always consider the possibility of a proximal neoplasm and the importance of following-up on symptoms if they don't completely resolve with the previously described therapy. 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 Plan: cotest in 1 year 08/26/19 NIL Pap, + HR HPV (neg 16/18). [place] due by 11/26/19. 09/12/19 [place] Bx - PARUL 1, ECC - Neg. Cotest due 09/11/20. 09/06/20 NIL pap, neg HR HPV. Plan 3 year cotest 07/16/18 NIL pap, + HR HPV (not 16/18). Plan: cotest in 1 year 08/26/19 NIL Pap, + HR HPV (neg 16/18). [place] due by 11/26/19 09/12/19 [place] Bx - PARUL 1, ECC - Neg. Cotest due 09/11/20. 03/28/24 NIL Pap, Neg HR HPV. Plan: cotest in 3 years. Resolved Problems Problem Noted Date Diagnosed Date Resolved Date delivery delivered 02/03/2024 03/28/2024 growth restriction antepartum 01/13/2024 03/28/2024 Gestational thrombocytopenia without hemorrhage in third trimester 11/23/2023 03/28/2024 Pyelectasis of fetus on ultrasound 10/14/2023 03/28/2024 Late care affecting 09/25/2023 03/28/2024 AMA (advanced maternal age) multigravida 35+ 03/28/2024 Dyspareunia in female 08/26/20232023 Postcoital bleeding 08/26/2023 03/28/20 Polyhydramnios, delivered, c urrent hospitalization 06/26/2021 08/09/2021 Polyhydramnios affecting pre gnancy in third trimester 06/05/2021 06/26/2021 Encounter for triage in patient 05/13/2021 05/22/2021 Indication for care in labor and delivery, antepartum 03/09/2021 04/24/2021 -maternal hemorrhage af fecting management of mother 03/09/2021 05/08/2021 Encounter for triage in patient 03/08/2021 04/24/2021 Hip pain, left 02/20/2021 05/03/2021 Hip pain, right 02/20/2021 05/03/2021 Obesity affecting 01/04/2021 03/28/2024 Infection due to 2019 novel coronavirus 07/10/2020 09/25/2023 Overview (07/10/2020): + PCR 03/05/20 delivery delivered 01/04/2019 09/25/2023 Spider veins of both lower extremities 11/12/2018 01/19/2019 Gestational thrombocytopenia 09/29/2018 01/04/2019 Previous delivery a ffecting 07/16/2018 03/28/2024 History of premature rupture of membranes (PPROM) 07/16/2018 01/04/2019 Uterine fibroids affecting 07/16/2018 03/28/2024 History of loss in prior , currently in third trimester 07/16/2018 Encounters Date Type Department Care Team Description 06/01/2024 Telephone [facility] [address] [place] [address] Kwame Chandler MD Pt. Information/instruction from Last 3 Months Immunizations Name Administration Dates Next Due COVID-19 Bivalent 12+ (Pfizer) 04/08/2022 HPV9 (Gardasil) 09/25/2020,05/24/2020,03/16/2020 Hep B, Adjuvanted 11/04/2019,10/04/2019 Hep B, Adult (Heplisav- B) 11/04/2019,10/04/2019 Hepatitis B, Adult (Energix- B/Recombivax HB) 11/04/2019,10/04/2019 Influenza Vaccine >6 months,quad, PF 01/04/2021, 01/07/2019,04/01/2018 Influenza, Split Virus, Triv alent, Pf (Fluzone\Fluarix) 01/22/2024 MMR (MMRII) 02/04/2024() Pneumococcal 20 valent Conju gate (Prevnar 20) 04/08/2022 RSV (Abrysvo) 01/22/2024 TDAP (Adacel,Boostrix) 11/23/2023,04/24/2021 TDAP Vaccine (Adacel) 09/29/2018 Family History Medical History Relation Comments No Known Problems Brother 1 No Known Problems Brother 2 No Known Problems Brother 3 No Known Problems Brother 4 Hypertension Mother Breast Cancer Paternal Aunt Relation Status Comments Brother 1 Alive Brother 2 Alive Brother 3 Alive Brother 4 Alive Daughter Alive Father Mother Alive Paternal Aunt Son Alive Social History Tobacco Use Types Packs/Day Years Used Date Smoking Tobacco: Never Smokeless Tobacco: Never Tobacco Cessation:Counseling Given: No Alcohol Use Standard Drinks/Week Comments No 0 (1 standard drink = 0.6 oz pur e alcohol) AUDIT-C Answer Date Recorded Frequency of Alcohol Consumption Never 07/08/2018 Average Number of Drinks Not on file 019 Frequency of Binge Drinking Not on file 06/12 PHQ-2 Answer Date Recorded PHQ-2 Score 4 03/31/2024 Griffith Depression Scale Answer Date Recorded Griffith Depression Scale Total 13 03/28/2024 The thought [...] Answer Date Recorded Do you have housing? 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 Not on file Not on file Last Filed Vital Signs Vital Sign Reading Time Taken Comments Blood Pressure 118/78 03/28/2024 3:04 PM PHARMACIST CRITICAL CARE Pulse 83 02/07/2024 8:59 AM CDT Temperature 36.6 C (97.9 F) 02/07/2024 8:59 AM CDT Respiratory Rate 18 02/07/2024 8:59 AM CDT Oxygen Saturation 95% 02/05/2024 4:54 PM CDT Inhaled Oxygen Concentration - - Weight 90.5 kg (199 lb 8 oz) 03/28/2024 3:04 PM PHARMACIST CRITICAL CARE Height 154.9 cm (5' 1) 02/03/2024 10:06 AM CDT Body Mass Index 37.7 02/03/2024 10:06 AM CDT Plan of Treatment Health Maintenance Due Date Last Done Comments ANNUAL REVIEW OF HM ORDERS 04/08/2023 04/08/2022, YEARLY PREVENTIVE VISIT 04/08/2023 04/08/2022, 07/11 COVID-19 Vaccine ( season) 2023 04/08/2022, 08/25/2020, 08/06/2020 PHQ-2 (once per calendar year) 2024 03/31/2024, 03/31/2024, 09/25/2023, Additional history exists ADVANCE CARE PLANNING 07/11/2025 07/11/2020 DIABETES SCREENING 02/04/2027 02/05/2024, 1 , 04/08/2022, Additional history exists HPV FOLLOW-UP 03/28/2027 03/28/2024, 03/13, 03/28/2024, Additional history exists PAP FOLLOW-UP 03/28/2027 03/28/2024, 03/13, 03/28/2024, Additional history exists LIPID 04/08/2027 04/08/2022 DTAP/TDAP/TD IMMUNIZATION (4 - Td or Tdap) 11/22/2033 11/23/2023, 04/24/2021, 09/29/2018 ZOSTER IMMUNIZATION (1 of 2) 01/08/2038 HEPATITIS B IMMUNIZATION Completed 020, 11/04/2019, 11/04/2019, Additional history exists HPV IMMUNIZATION Completed 09/25/2020, 02/2021, 03/16/2020 Pneumococcal Vaccine: Pediatrics (0 to 5 Years) and At-Risk Patients (6 to 49 Years) Aged Out 04/08/2022 No longer eligible based on patient's age to complete this topic HEPATITIS C SCREENING Completed 08/27/2023, 021 HIV SCREENING Completed 08/27/2023, 12/12, 07/08/2018 INFLUENZA VACCINE Completed 01/22/2024, , 01/07/2019, Additional history exists RSV VACCINE Discontinued 01/22/2024 PAP Discontinued 03/28/2024, 03/13, 03/28/2024, Additional history exists MENINGITIS IMMUNIZATION Aged Out No l onger eligible based on patient's age to complete this topic Procedures Procedure Name Priority Date/Time Associated Diagnosis Comments HPV AND GYNECOLOGIC CYTOLOGY PANEL Routine 03/28/2024 3:12 PM PHARMACIST CRITICAL CARE Mild dysplasia of cervix BASIC METABOLIC PANEL Routine 02/05/2024 6:49 AM CDT HIV ANTIGEN ANTIBODY COMBO Routine 08/27/2023 3:17 PM CDT care, subsequent , unspecified trimester HEPATITIS C SCREEN REFLEX TO HCV RNA QUANT AND GENOTYPE Routine 08/27/2023 3:17 PM CDT care, subsequent , unspecified trimester LIPID REFLEX TO DIRECT LDL PANEL Routine 04/08/2022 12:06 PM PHARMACIST CRITICAL CARE Lipid screening from Last 3 Months or Most Recently Relevant to Health Maintenance Results * HPV and Gynecologic Cytology Panel - Recommended Age 30 - 65 Years (03/28/2024 3:12 PM PHARMACIST CRITICAL CARE) Human Papilloma Virus 16 DNA Negative Negative 03/29/2024 1:19 PM PHARMACIST CRITICAL CARE [facility] Human Papilloma Virus 18 DNA Negative Negative 03/29/2024 1:19 PM PHARMACIST CRITICAL CARE [facility] Human Papilloma Virus Other Negative Negative 03/29/2024 1:19 PM PHARMACIST CRITICAL CARE [facility] FINAL DIAGNOSIS This patient's sample is negative for high risk HPV DNA. METHODOLOGY: The [employer] system uses automated extraction, simultaneous amplification of HPV (E6/E7 oncogenes) and beta-globin, followed by real time detection of fluorescent labeled HPV and beta globin using specific oligonucleotide probes. The test specifically identifies types HPV 16 DNA and HPV 18 DNA while concurrently detecting the rest of the high risk types (31, 33, 35, 39, 45, 51, 52, 56, 58, 59, 66 or 68). COMMENTS: This test is not intended for use as a screening device for woman under age 30 with normal cervical cytology. Results should be correlated with cytologic and histologic findings. Close clinical follow up is recommended. Please see the separate Gynecologic Cytology (Pap) report from the same collection date. 03/29/2024 1:19 PM PHARMACIST CRITICAL CARE MOLECULAR DIAGNOSTICS Brushing ENDOCERVICAL STRUCTURE / Unknown Non-blood Collection / Unknown 03/28/2024 3:12 PM PHARMACIST CRITICAL CARE 03/28/2024 4:09 PM PHARMACIST CRITICAL CARE us Kwame Chandler MD LAB - BLOOD ORDERABLES Final R esult [facility] Special[facility] [address] [facility] [place] [address] [address] MOLECULAR DIAGNOSTICS Molecular Diagnostics [address] [facility] [place] [place] [address] [phone] * (ABNORMAL) Basic metabolic panel (02/05/2024 6:49 AM CDT) Sodium 138 135 - 145 mmol/L 02/05/2024 7:36 AM CDT [facility] Potassium 3.9 3.4 - 5.3 mmol/L 02/05/2024 7:36 AM CDT [facility] Chloride 105 98 - 107 mmol/L 02/05/2024 7:36 AM CDT [facility] Carbon Dioxide (CO2) 22 22 - 29 mmol/L 02/05/2024 7:36 AM CDT [facility] Anion Gap 11 7 - 15 mmol/L 02/05/2024 7:36 AM CDT [facility] Urea Nitrogen 9.2 6.0 - 20.0 mg/dL 02/05/2024 7:36 AM CDT [facility] Creatinine 0.76 0.51 - 0.95 mg/dL 02/05/2024 7:36 AM CDT [facility] GFR Estimate >90 >60 mL/min/1.7 3m2 02/05/2024 7:36 AM CDT [facility] Comment:eGFR calculated usin 2020 CKD-EPI equation. Calcium 8.7(L) 8.8 - 10.4 mg/dL 02/05/2024 7:36 AM CDT [facility] Comment:Reference intervals for this test were updated on 10/27/2023 to reflect our healthy population more accurately. There may be differences in the flagging of prior results with similar values performed with this method. Those prior results can be interpreted in the context of the updated reference intervals. Glucose 79 70 - 99 mg/dL 02/05/2024 7:36 AM CDT LABORATORY Blood STRUCTURE OF RIGHT UPPER LIMB / Unknown Venipuncture / Unknown 02/05/2024 6:49 AM CDT 02/05/2024 7:08 AM CDT Marjan Virk DO LAB - BLOOD ORDERABLES Fi nal Result LABORATORY [facility] [address] [facility] (1st floor, no room number) [place] [address] * HIV Antigen Antibody Combo (08/27/2023 3:17 PM CDT) [facility] HIV Antigen Antibody Combo Nonreactive Nonreactive 08/28/2023 4:15 PM CDT [facility] Comment:Negative HIV-1 p24 a ntigen and HIV-1/2 antibody screening test results usually indicate the absence of HIV-1 and HIV-2 infection. However, such negative results do not rule-out acute HIV infection. If acute HIV-1 or HIV-2 infection is suspected, detection of HIV-1 or HIV-2 RNA is recommended. Blood BLOOD SPECIMEN / Unknown Venipuncture / Unknown 08/27/2023 3:17 PM CDT 08/27/2023 3:24 PM CDT Kwame Chandler MD LAB - BLOOD ORDERABLES Final R esult [facility] [address] [facility], [address] [address] * Hepatitis C Screen Reflex to HCV RNA Quant and Genotype (08/27/2023 3:17 PM CDT) Hepatitis C Antibody Nonreactive Nonreactive 08/28/2023 11:56 AM CDT [facility] Comment:A nonreactive screen ing test result does not exclude the possibility of exposure to or infection with HCV. Nonreactive screening test results in individuals with prior exposure to HCV may be due to antibody levels below the limit of detection of this assay or lack of reactivity to the HCV antigens used in this assay. Patients with recent HCV infections (<3 months from time of exposure) may have false- negative HCV antibody results due to the time needed for seroconversion (average of 8 to 9 weeks). Blood BLOOD SPECIMEN / Unknown Venipuncture / Unknown 08/27/2023 3:17 PM CDT 08/27/2023 3:24 PM CDT Kwame Chandler MD LAB - BLOOD ORDERABLES Final R esult Performing Organization Address City/[facility]/ZIP Co de Phone Number [facility] [address] [facility], [address] [address] * (ABNORMAL) Lipid panel reflex to direct LDL Non-fasting (04/08/2022 12:06 PM PHARMACIST CRITICAL CARE) Cholesterol 239(H) <200 mg/dL 04/08/2022 3:27 PM PHARMACIST CRITICAL CARE [facility] Triglycerides 189(H) <150 mg/dL 04/08/2022 3:27 PM PHARMACIST CRITICAL CARE [facility] Direct Measure HDL 44(L) >=50 mg/dL 04/08/2022 3:27 PM PHARMACIST CRITICAL CARE [facility] LDL Cholesterol Calculated 157(H) <=100 mg/dL 04/08/2022 3:27 PM PHARMACIST CRITICAL CARE [facility] Non HDL Cholesterol 195(H) <130 mg/dL 04/08/2022 3:27 PM PHARMACIST CRITICAL CARE [facility] Blood STRUCTURE OF RIGHT UPPER LIMB / Unknown Venipuncture / Unknown 04/08/2022 12:06 PM PHARMACIST CRITICAL CARE 04/08/2022 12:06 PM PHARMACIST CRITICAL CARE Narrative [facility] - 04/08/2022 3:27 PM PHARMACIST CRITICAL CARE Cholesterol Desirable: <200 mg/dL Triglycerides Normal: Less than 150 mg/dL Borderline High: 150-199 mg/dL High: 200-499 mg/dL Very High: Greater than or equal to 500 mg/dL Direct Measure HDL Female: Greater than or equal to 50 mg/dL Male: Greater than or equal to 40 mg/dL LDL Cholesterol Desirable: <100mg/dL Above Desirable: 100-129 mg/dL Borderline High: 130-159 mg/dL High: 160-189 mg/dL Very High: >= 190 mg/dL Non HDL Cholesterol Desirable: 130 mg/dL Above Desirable: 130-159 mg/dL Borderline High: 160-189 mg/dL High: 190-219 mg/dL Very High: Greater than or equal to 220 mg/dL Geremias Blackwell MD LAB - BLOOD ORDERABLES Winnie pemberton Result [facility] [address] [facility], [address] [place] [address], [facility] [phone] from Last 3 Months or Most Recently Relevant to Health Maintenance Insurance [facility] OUT OF STATE [facility] OUT OF STATE [facility] [place] [address] [facility] OUT OF STATE [facility] Advance Directives For more information, please contact: [phone] * Full Code (Latest Code Status on File) Date Activated Date Inactivated Comments 06/27/2021 9:48 AM 06/28/2021 3:52 PM All basic an d advanced life-sustaining interventions are performed as appropriate Question Answer Comments Code status determined by: Discussion with patie nt/ legal decision maker Care Teams Floor Associate Relationship Specialty Start Date End Date Geremias Blackwell MD [address] [place] [address] [address] [place] [phone] PCP - General Internal Medicine 04/08/22 Tejal Chen APRN LABOR RELATIONS MANAGER [address] [facility] [address] [place], [place] [phone] Nurse Practitioner Nurse Practitioner 04/29/19 Balbir Talamantes MD [address] [place], [place] [address] Neurology 07/20/20 Geremias Blackwell MD [address] [place] [address] [address] [place] [phone] Assigned PCP 04/19/22 Kwame Chandler MD [address] [address] beauty sales consultant 08/25/23 Kwame Chandler MD [address] [address] Assigned OBGYN Provider 10/04/23 Althea Carorll NP [address] [place] [address] Assigned Pediatric Specialist Provider 02/03/24
--- OUTSIDE RECORDS SUMMARY | 2024-08-01 20:27 | XMS_ITS | Clinical Summary ---
Author Organization [facility] Address [address] [place] [address] Care Team Providers Care Sat Instructor Name Role Phone Unavailable Primary Care Provider Unavailabl e Source Comments PLEASE NOTE, if this patient is a minor, it may be UNLAWFUL to discuss sensitive information that is contained in these records (such as FAMILY PLANNING, MENTAL HEALTH or SUBSTANCE ABUSE) with the minor patient's parent or other person without the patient's specific authorization.[facility] Social History Tobacco Use Types Packs/Day Years Used Date Smoking Tobacco: Never Smokeless Tobacco: Never Tobacco Cessation:Counseling Given: Yes Social Connections Answer Date Recorded Social Connections and Isolation 0 02/29/2020 Financial Resource Strain Answer Date R ecorded Financial Resource Strain 0 2019 Stress Answer Date Recorded Stress 0 02/29/2020 Physical Activity Answer Date Recorded Physical Activity 0 02/29/2020 Food Insecurity Answer Date Recorded Food 0 02/29/2020 Transportation Needs Answer Date Record ed Transportation 0 02/29/2020 Housing Stability Answer Date Recorded Housing 0 02/29/2020 Safety and Environment Answer Date Demetri rded Safety 0 02/29/2020 Utilities Answer Date Recorded Utilities 0 02/29/2020 Employment Answer Date Recorded Employment 0 02/29/2020 Comments Unknown Sex and Gender Information Value Date Recorded Sex Assigned at Not on file Legal Sex Female 7:38 AM PST Gender Identity Female 04/20/2020 9:50 AM PST Sexual Orientation Straight 04/20/2020 9: 50 AM PST Plan of Treatment Not on file Insurance [employer]
--- OUTSIDE RECORDS SUMMARY | 2024-08-01 20:27 | XMS_ITS | Encounter Summary ---
Author Organization [place] Address [address] [place] [address] Care Team Providers Care Internet Technology Manager Name Role Phone Kwame Chandler MD Primary Care Provider [phone] Tejal Chen APRN USER INTERFACE DESIGNER Unavaila ble Kwame Chandler MD Unavailable + [phone] Torri Donis PA-C Unavailable [phone] Balbir Talamantes MD Unavailable [phone] Jimmy Ayala MD Unavailable Karolina Zhao-C Unavailable Catracho Domingo MD Unavailable Unavailable Karolina ZhaoC Unavailable Nevaeh Gutierres-C Unavailable [phone] Geremias Blackwell MD Primary Care Provider [phone] Geremias Blackwell MD Unavailable [phone] Kwame Chandler MD Unavailable + [phone] Kwame Chandler MD Unavailable + [phone] Althea Carroll NP Unavailable Michelle Dasilva RN Unavailable Unavailab le Encounter Details Date Type Department Care Team (Late st Contact Info) Description 12/26/2020 Documentation Only INTERFACED REPORT Unknown, Provider Social [...] Answer Date Recorded PHQ-2 Score 4 03/31/2024 [place] Depression Scale Answer Date Recorded [place] Depression Scale Total 13 03/28/2024 The thought [...] in an abandoned building, in an overnight penitentiary, or couch-surfing.) No 02/03/2024 Are you worried [...] 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 No / Unsure 04/08/2022 10:39 AM MEDIA STRATEGIST documented as of this encounter Plan of Treatment Not on file documented as of this encounter Visit Diagnoses Not on filedocumented in this encounter Additional Health Concerns Infection Onset Date Last Indicated Resolved Time Rule Out COVID-19 10/23/2023 10/23/2023 10/24/2023 11:55 AM CDT documented as of this encounter Care Teams Internet Technology Manager Relationship Specialty Start Date End Date Kwame Chandler MD PCP - General wellness instructor 12/08/18 04/07/22 Geremias Blackwell MD [address] [place] [address] 220 [place] [address] PCP - General Internal Medicine 04/08/22 Tejal Chen APRN USER INTERFACE DESIGNER [address] [place] [address] 450 [place], [place] 249505 Nurse Practitioner Nurse Practitioner 04/29/19 Kwame Chandler MD Assigned OBGYN Provider 02/03/20 Torri Donis, PALeidyC [address] 315 [place] [address] Assigned Surgical Provider 06/27/20 07/27/21 Balbir Talamantes MD [address] [place] [address] Neurology 07/20/20 Jimmy Ayala MD [address] [place] [address] Assigned Neuroscience Provider 07/29/20 01/24/22 Karolina Zhao PA-C [address] [place] [address] Assigned PCP 11/18/20 03/16/21 Catracho Domingo MD Assigned PCP 03/17/21 04/13/21 Karolina Zhao PA-C [address] [place] [address] Assigned PCP 04/14/21 04/18/22 Nevaeh Gutierres PA-C [facility] [address] [place] [address] Assigned Neuroscience Provider 01/25/22 06/06/22 Geremias Blackwell MD [address] [place] [address] 220 [place] [address] Assigned PCP 04/19/22 Kwame Chandler MD [address] [facility] 100 [place] [address] wellness instructor 08/25/23 Kwame Chandler MD [address] [facility] [address] 100 [place] [address] Assigned OBGYN Provider 10/04/23 Althea Carroll NP [address] [place] [address] [address] [place] [address] Assigned Pediatric Specialist Provider 02/03/24 Michelle Dasilva, RN Lead Clinical Rehabilitation Specialist 02/08/24 02/22/24 documented as of this encounter
--- OUTSIDE RECORDS SUMMARY | 2024-08-01 20:27 | XMS_ITS | Encounter Summary ---
Author Organization [place] Address [address] [place] [address] Care Team Providers Care Carburetor Specialist Name Role Phone Kwame Chandler MD Primary Care Provider [phone] Tejal Chen APRN ROLLER COASTER OPERATOR Unavaila ble Cheyenne Yeh MANAGEMENT ADVISOR Unavailable [phone] Jennifer Cain CHW Unavailable [phone] Shruthi Alberto Unavailable Unavailable Kwame Chandler MD Unavailable [phone] Torri DonisC Unavailable [phone] Balbir Talamantes MD Unavailable [phone] Jimmy Ayala MD Unavailable Catracho Domingo MD Unavailable Unavailable Chelsie Gallardo APRN ROLLER COASTER OPERATOR Unavailable Un available Karolina ZhaoC Unavailable Catracho Domingo MD Unavailable Unavailable Karolina ZhaoC Unavailable Nevaeh Gutierres-C Unavailable [phone] Geremias Blackwell MD Primary Care Provider Geremias Blackwell MD Unavailable [phone] Kwame Chandler MD Unavailable [phone] Kwame Chandler MD Unavailable [phone] Althea Carroll NP Unavailable Michlele Dasilva RN Unavailable Unavailab le Encounter Details Date Type Department Care Team (Late st Contact Info) Description 12/28/2018 Orders Only [facility] [address] [place] [phone] Kwame Chandler MD [address] [place] [address] Pre-operative laboratory examination (Primary Dx) Social History Tobacco Use Types Packs/Day Years Used Date Smoking Tobacco: Never Smokeless Tobacco: Never Alcohol Use Standard Drinks/Week Comments No 0 (1 standard drink = 0.6 oz pur e alcohol) AUDIT-C Answer Date Recorded Frequency of Alcohol Consumption Never 07/08/2018 Average Number of Drinks Not on file 019 Frequency of Binge Drinking Not on file 06/12 Comments Yes Sex and Gender Information Value [...] on file documented as of this encounter Results * Treponema Abs w Reflex to RPR and Titer (01/03/2019 7:30 AM CDT) Treponema Antibodies Nonreactive NR^Nonrea ctive 01/03/2019 2:[address] [facility] Blood specimen (specimen) 01/03/2019 7:30 AM CDT 01/03/2019 7:34 AM CDT us Kwame Chandler MD LAB - BLOOD ORDERABLES Final R esult [facility] [address] [place] [address] * Hemoglobin (01/03/2019 7:30 AM CDT) Hemoglobin 12.8 11.7 - 15.7 g/dL 01/03/2019 7:37 AM CDT [facility] Blood specimen (specimen) 01/03/2019 7:30 AM CDT 01/03/2019 7:34 AM CDT us Kwame Chandler MD LAB - BLOOD ORDERABLES Final R esult Performing Organization Address [facility] Co de Phone Number [facility] [address] [place] [address], [facility] [phone] * ABO/Rh type and screen (01/03/2019 7:30 AM CDT) ABO O 01/03/2019 8:20 AM CDT [facility] RH(D) Pos [facility] Antibody Screen Neg 01/03/2019 8:20 AM CDT [facility] Test Valid Only At [facility] 01/03/2019 8:22 AM CDT [facility] Specimen Expires 01/06/2019 01/03/2019 8:22 AM CDT [facility] Blood specimen (specimen) 01/03/2019 7:30 AM CDT 01/03/2019 7:35 AM CDT us Kwame Chandler MD LAB - BLOOD BANK TEST ORDER Fi nal Result Performing Organization Address [facility] Co de Phone Number [facility] [address] [place] [address], [facility] [phone] documented in this encounter Visit Diagnoses Diagnosis Pre-operative laboratory examination- Primary Pre-procedural laboratory examination documented in this encounter Additional Health Concerns Infection Onset Date Last Indicated Resolved Time Rule Out COVID-19 10/23/2023 10/23/2023 10/24/2023 11:55 AM CDT documented as of this encounter Care Teams Carburetor Specialist Relationship Specialty Start Date End Date Kwame Chandler MD PCP - General maint mechanic 12/08/18 04/07/22 Geremias Blackwell MD [address] [place] [address] PCP - General Internal Medicine 04/08/22 Tejal Chen APRN ROLLER COASTER OPERATOR [address] [address] Nurse Practitioner Nurse Practitioner 04/29/19 Cheyenne Yeh LSW [address] [address]28[address] Lead Curtain Stitcher Primary Care - CC 01/27/2003/13 Jennifre Cain [facility] Community Health Worker Primary Care - CC 01/27/20 Shruthi Alberto Other (see comments) 01/30/20 03/25/20 Kwame Chandler MD Assigned OBGYN Provider 02/03/20 Torri Donis, PA-C [address] [place] [address] Assigned Surgical Provider 06/27/20 07/27/21 Balbir Talamantes MD [address] [place] [address] Neurology 07/20/20 Jimmy Ayala MD [address] [place] [address] Assigned Neuroscience Provider 07/29/20 01/24/22 Catracho Domingo MD Assigned PCP 06/21/20 10/25/20 Chelsie Gallardo APRN [facility] Assigned PCP 10/26/20 11/17/20 Karolina Zhao PA-C [address] [place] [address] Assigned PCP 11/18/20 03/16/21 Catracho Domingo MD Assigned PCP 03/17/21 04/13/21 Karolina Zhao PA-C [address] [place] [address] Assigned PCP 04/14/21 04/18/22 Nevaeh Gutierres PA-C [facility] [address] [place] [address] Assigned Neuroscience Provider 01/25/22 06/06/22 Geremias Blackwell MD [address] [place] [address] [address] [place] [address] Assigned PCP 04/19/22 Kwame Chandler MD [address] [address] maint mechanic 08/25/23 Kwame Chandler MD [address] [address] Assigned OBGYN Provider 10/04/23 Althea Carroll NP [address] [place] [address] Assigned Pediatric Specialist Provider 02/03/24 Michelle Dasilva, RN Lead Curtain Stitcher 02/08/24 02/22/24 documented as of this encounter
--- OUTSIDE RECORDS SUMMARY | 2024-08-01 20:27 | XMS_ITS | Encounter Summary ---
Author Organization [place] Address [address] [place] [address]. [place] [address] Care Team Providers Care Baton Teacher Name Role Phone Tejal Chen APRN BEAN WEIGHER Unavaila ble Balbir Talamantes MD Unavailable [phone] Geremias Blackwell MD Primary Care Provider [phone] Geremias Blackwell MD Unavailable [phone] Kwame Chandler MD Unavailable [phone] Kwame Chandler MD Unavailable [phone] Althea Carroll NP Unavailable Reason for Visit * Reason Onset Date Comments Forms 04/20/2024 Encounter Details Date Type Department Care Team (Late st Contact Info) Description 04/20/2024 Telephone [facility] [address] [place] [address] Kwame Chandler MD [address] [place] [address] Forms Social History Tobacco Use Types Packs/Day Years [...] Answer Date Recorded PHQ-2 Score 4 03/31/2024 [place] Depression Scale Answer Date Recorded [place] Depression Scale Total 13 03/28/2024 The thought [...] Date Recorded Do you have housing? (Lisandra bender is defined as stable permanent housing and does not include staying ouside in a car, in a tent, in an abandoned building, in an overnight senior care, or couch-surfing.) No 02/03/2024 Are you worried [...] Industry Job Start Date Job End Date [employer] Not on file Not on file Not on file documented as of this encounter Miscellaneous Notes * Telephone Encounter - Michelle Child CMA - 04/22/2024 10:06 AM RAIL TRACTOR OPERATOR Faxed records to [facility]. Michelle Child CMA on 04/22/2024 at 10:07 AM TRACTOR OPERATOR * Telephone Encounter - Camille Urena - 04/20/2024 12:30 PM CST Form received from: [employer] via fax Form requesting following info/need: STD MARK needed?: na Location of form: forms basket When completed the route for return: fax TRACTOR OPERATOR documented in this encounter Plan of Treatment Not on file documented as of this encounter Visit Diagnoses Not on filedocumented in this encounter Additional Health Concerns Assessment Noted Time PHQ-9 Depression Total Score: 17 024 11:20 AM RAIL TRACTOR OPERATOR documented as of this encounter Care Teams Baton Teacher Relationship Specialty Start Date End Date Geremias Blackwell MD [address] [place] [phone] PCP - General Internal Medicine 04/08/22 Tejal Chen, VACUUM CLEANER REPAIRER BEAN WEIGHER [address] [place] [address] [address] [place], [place] 2[address] Nurse Practitioner Nurse Practitioner 04/29/19 Balbir Talamantes MD [address] [place] [address] Neurology 07/20/20 Geremias Blackwell MD [address] [place] [address] 220 [place] [address] Assigned PCP 04/19/22 Kwame Chandler MD [address] [place] [facility] 100 [place] [address] program evaluator 08/25/23 Kwame Chandler MD [address] [facility] 100 [place] [address] Assigned OBGYN Provider 10/04/23 Althea Carroll NP [address] [place] [address] [address] [place], [place] 2399[address] Assigned Pediatric Specialist Provider 02/03/24 documented as of this encounter
--- OUTSIDE RECORDS SUMMARY | 2024-08-01 20:27 | XMS_ITS | Encounter Summary ---
Author Organization [place] Address [address] [place] [address] Care Team Providers Care Briquetter Operator Name Role Phone Kwame Chandler MD Primary Care Provider [phone] Tejal Chen APRN ELECTRICAL MAINTENANCE TECHNICIAN Unavaila ble Cheyenne Yeh MIXER DRIVER Unavailable [phone] Jennifer Cain CHW Unavailable [phone] Shruthi Alberto Unavailable Unavailable Kwame Chandler MD Unavailable [phone] Torri DonisC Unavailable [phone] Balbir Talamantes MD Unavailable [phone] Jimmy Ayala MD Unavailable Catracho Domingo MD Unavailable Unavailable Chelsie Gallardo APRN ELECTRICAL MAINTENANCE TECHNICIAN Unavailable Un available Karolina ZhaoC Unavailable Catracho Domingo MD Unavailable Unavailable Karolina ZhaoC Unavailable Nevaeh Gutierres-C Unavailable [phone] Geremias Blackwell MD Primary Care Provider Geremias Blackwell MD Unavailable [phone] Kwame Chandler MD Unavailable [phone] Kwame Chandler MD Unavailable [phone] Althea Carroll NP Unavailable Michelle Dasilva RN Unavailable Unavailab le Reason for Referral * Consultation (Routine) - Closed Specialty Diagnoses / Procedures Referred By Mila corley Referred To Contact Diagnoses Hemorrhoids, unspecified hemorrhoid type Kwame Chandler MD Phone: tel: fax: MULTIPLE LOCATIONS Referral ID Status Reason Start Date Expiration Date Visits Re quested Visits Authorized [id number] Closed 04/26/2019 04/25/2020 1 1 Comments Your provider has referred you to: [facility]: [facility] [place] [email or web address] [place]: Colon and Rectal Surgery [facility] [email or web address] [place] [email or web address] [place] [email or web address] [facility]: [facility] [place] [email or web address] Referral Reason(s): Hemorrhoids Special Concerns: sickle cell trait This referral is: Elective (week +) It is OK to leave a message on patient's voicemail. Please be aware that coverage of these services is subject to the terms and limitations of your health insurance plan. Call member services at your health plan with any benefit or coverage questions. Please bring the following with you to your appointment: (1) Any X-Rays, CTs or MRIs which have been performed. Contact the facility where they were done to arrange for pickling drum operator prior to your scheduled appointment. (2) List of current medications (3) This referral request (4) Any documents/labs given to you for this referral OR UX DESIGNER Reason for Visit * Reason Onset Date Comments Referral 04/23/2019 Encounter Details Date Type Department Care Team (Late st Contact Info) Description 04/23/2019 MyC Medical Advice [facility] [address] [facility] [address] [place] [address] Kwame Chandler MD [address] [facility] [address] [place], [place] [address] Referral Social History Tobacco Use Types Packs/Day Years Used Date Smoking Tobacco: Never Smokeless Tobacco: Never Alcohol Use Standard Drinks/Week Comments No 0 (1 standard drink = 0.6 oz pur e alcohol) AUDIT-C Answer Date Recorded Frequency of Alcohol Consumption Never 07/08/2018 Average Number of Drinks Not on file 019 Frequency of Binge Drinking Not on file 06/12 [place] Depression Scale Answer Date Recorded [place] Depression Score 15 01/07/2019 Last EPDS Self [...] encounter Miscellaneous Notes * Telephone Encounter - Kwame Chandler MD - 04/25/2019 5:[address] consult order for Pt to get appt with colorectal surgery for symptomatic hemorrhoids. OR UX DESIGNER * Telephone Encounter - Analia Navarro RN - 04/25/2019 4:38 PM CST Please address the my chart message. Holly Naavrro RN OR UX DESIGNER documented in this encounter Plan of Treatment Scheduled Referrals Name Type Priority Associated Diagnoses Orde r Schedule COLORECTAL SURGERY REFERRAL Referral Routine Hemorrhoids, unspecified hemorrhoid type Ordered: 04/26/2019 documented as of this encounter Visit Diagnoses Diagnosis Hemorrhoids, unspecified hemorrhoid type- Primary documented in this encounter Additional Health Concerns Infection Onset Date Last Indicated Resolved Time Rule Out COVID-19 10/23/2023 10/23/2023 10/24/2023 11:55 AM CDT documented as of this encounter Care Teams Briquetter Operator Relationship Specialty Start Date End Date Kwame Chandler MD PCP - General wooden frame builder 12/08/18 04/07/22 Geremias Blackwell MD [address] [place] [phone] PCP - General Internal Medicine 04/08/22 Teajl Chen APRN ELECTRICAL MAINTENANCE TECHNICIAN [address] [place] [address]4565 Nurse Practitioner Nurse Practitioner 04/29/19 Cheyenne Yeh LSW [address] 6[address] Lead Agricultural Extension Agent Primary Care - CC 01/27/2003/13 Jennifer Cain [facility] Community Health Worker Primary Care - CC 01/27/20 Shruthi Alberto Other (see comments) 01/30/20 03/25/20 Kwame Chandler MD Assigned OBGYN Provider 02/03/20 Torri Donis PA-C [address] [place] [address] Assigned Surgical Provider 06/27/20 07/27/21 Balbir Talamantes MD 909 [place] [address] Neurology 07/20/20 Jimmy Ayala MD [address] [place] [address] Assigned Neuroscience Provider 07/29/20 01/24/22 Catracho Domingo MD Assigned PCP 06/21/20 10/25/20 Chelsie Gallardo APRN [facility] Assigned PCP 10/26/20 11/17/20 Karolina Zhao PA-C [address] [place] [address] Assigned PCP 11/18/20 03/16/21 Catracho Domingo MD Assigned PCP 03/17/21 04/13/21 Kraolina Zhao PA-C [address] [place] [address] Assigned PCP 04/14/21 04/18/22 Nevaeh Gutierres PA-C [facility] [address] [place] [address] Assigned Neuroscience Provider 01/25/22 06/06/22 Geremias Blackwell MD [address] [place] [address] [address] [place] [address] Assigned PCP 04/19/22 Kwame Chandelr MD [address] [facility] 100 [place] [address] wooden frame builder 08/25/23 Kwame Chandler MD [address] [facility] [address] [place] [address] Assigned OBGYN Provider 10/04/23 Althea Carroll NP [address] [place] [address] [address] [place] [address] Assigned Pediatric Specialist Provider 02/03/24 Michelle Dasilva, RN Lead Agricultural Extension Agent 02/08/24 02/22/24 documented as of this encounter
--- OUTSIDE RECORDS SUMMARY | 2024-08-01 20:27 | XMS_ITS | Encounter Summary ---
Author Organization [place] Address [address] [place] [address] Care Team Providers Care Chief Analytics Officer Name Role Phone Kwame Chandler MD Primary Care Provider [phone] Tejal Chen APRN PHYSICAL PLANT MANAGER Unavaila ble Cheyenne Yeh AUTOMATIC DOOR MECHANIC Unavailable [phone] Jennifer Cain CHW Unavailable [phone] Shruthi Alberto Unavailable Unavailable Kwame Chandler MD Unavailable [phone] Torri DonisC Unavailable [phone] Balbir Talamantes MD Unavailable [phone] Jimmy Ayala MD Unavailable Catracho Domingo MD Unavailable Unavailable Chelsie Gallardo APRN PHYSICAL PLANT MANAGER Unavailable Un available Karolina ZhaoC Unavailable Catracho Domingo MD Unavailable Unavailable Karolina ZhaoC Unavailable Nevaeh Gutierres-C Unavailable [phone] Geremias Blackwell MD Primary Care Provider Geremias Blackwell MD Unavailable [phone] Kwame Chandler MD Unavailable [phone] Kwame Chandler MD Unavailable [phone] Althea Carroll NP Unavailable Michelle Dasilva RN Unavailable Unavailab le Encounter Details Date Type Department Care Team (Late st Contact Info) Description 09/28/2019 Orders Only [facility] [address] [facility] [address] [place] [address] Debbie Hewitt, RN Social History Tobacco Use Types Packs/Day [...] Answer Date Recorded PHQ-2 Score 2 06/16/2019 [place] Depression Scale Answer Date Recorded [place] Depression Score 15 01/07/2019 Last EPDS Self [...] on file documented as of this encounter Procedures Procedure Name Priority Date/Time Associated Diagnosis Comments COLPOSCOPY Routine 09/12/2019 12:00 AM CDT documented in this encounter Results * COLPOSCOPY (09/12/2019 12:00 AM CDT) Kwame Chandler MD PROCEDURE/MINOR SURGICAL ORDER AMANDA Final Result documented in this encounter Visit Diagnoses Not on filedocumented in this encounter Additional Health Concerns Infection Onset Date Last Indicated Resolved Time Rule Out COVID-19 10/23/2023 10/23/2023 10/24/2023 11:55 AM CDT documented as of this encounter Care Teams Chief Analytics Officer Relationship Specialty Start Date End Date Kwame Chandler MD PCP - General supervisor scouring pads 12/08/18 04/07/22 Geremias Blackwell MD [address] [place] [address] PCP - General Internal Medicine 04/08/22 Tejal Chen APRN PHYSICAL PLANT MANAGER [address] [place] [address]65 Nurse Practitioner Nurse Practitioner 04/29/19 Cheyenne Yeh LSW [address] 649965 Lead Director Of Estate Primary Care - CC 01/27/2003/13 Jennifer Cain, [facility] Community Health Worker Primary Care - CC 01/27/20 Shruthi Alberto Other (see comments) 01/30/20 03/25/20 Kwame Chandler MD Assigned OBGYN Provider 02/03/20 Torri Donis, PALeidyC [address] [place], [place] [address] Assigned Surgical Provider 06/27/20 07/27/21 Balbir Talamantes MD [address] [place] [address] Neurology 07/20/20 Jimmy Ayala MD [address] [place] [address] Assigned Neuroscience Provider 07/29/20 01/24/22 Catracho Domingo MD Assigned PCP 06/21/20 10/25/20 Chelsie Gallardo APRN PHYSICAL PLANT MANAGER Assigned PCP 10/26/20 11/17/20 Karolina Zhao PA-C [address] [place] [address] Assigned PCP 11/18/20 03/16/21 Catracho Domingo MD Assigned PCP 03/17/21 04/13/21 Karolina Zhao PA-C [address] [place] [address] Assigned PCP 04/14/21 04/18/22 Nevaeh Gutierres PA-C [facility] [address] [place] [address] Assigned Neuroscience Provider 01/25/22 06/06/22 Geremias Blackwell MD [address] [address] [place] [address] Assigned PCP 04/19/22 Kwame Chandler MD [address] [facility] [address] [place] [address] supervisor scouring pads 08/25/23 Kwame Chandler MD [address] [facility] [address] [place] [address] Assigned OBGYN Provider 10/04/23 Althea Carroll NP [address] [place] [place] [address] Assigned Pediatric Specialist Provider 02/03/24 Michelle Dasilva, RN Lead Director Of Estate 02/08/24 02/22/24 documented as of this encounter
--- OUTSIDE RECORDS SUMMARY | 2024-08-01 20:27 | XMS_ITS | Clinical Summary ---
Author Organization [facility] Address [address] [place] [address] Care Team Providers Care Missile Inspector Preflight Name Role Phone [facility] Primary Care Provider Allergies No known active allergies Social History Tobacco Use Types Packs/Day Years Used Date Smoking Tobacco: Never Assessed Comments No Sex and Gender Information Value Date Recorded Sex Assigned at Not on file Legal Sex Female 8:01 PM CDT Gender Identity Not on file Sexual Orientation Not on file Last Filed Vital Signs Vital Sign Reading Time Taken Comments Blood Pressure 136/91 02/04/2023 9:48 PM CDT Pulse 81 02/04/2023 9:48 PM CDT Temperature 36.6 C (97.8 F) 02/04/2023 9:48 PM CDT Respiratory Rate 16 02/04/2023 9:48 PM CDT Oxygen Saturation 99% 02/04/2023 9:48 PM CDT Inhaled Oxygen Concentration - - Weight 90.5 kg (199 lb 8 oz) 02/04/2023 8:17 PM CDT Height 154.9 cm (5' 1) 02/04/2023 8:16 PM CDT Body Mass Index 37.7 02/04/2023 8:16 PM CDT Plan of Treatment Health Maintenance Due Date Last Done Comments Tdap 01/08/1999 Depression screening for age 12+ 2000 HIV for age 15-65 01/08/2003 BMI (ht and wt on same day) for age 18+ 01/08/2006 Hepatitis C screening for ag e 18-79 01/08/2006 Tetanus booster 2008 (IA) Influenza for age 9-49 12/13/2023 COVID-19 vaccine series ( season) 2023 04/08/2022 Pap test for age 21-65 02/10/2026 , 02/10/2023 Pneumococcal series for age 6-49 Aged Out No longer eligible b ased on patient's age to complete this topic Procedures Procedure Name Priority Date/Time Associated Diagnosis Comments HPV HIGH RISK Routine 02/10/2023 12:00 PM CDT from Last 3 Months or Most Recently Relevant to Health Maintenance Results * HPV HIGH RISK (02/10/2023 12:00 PM CDT) TYPE 16 Negative Negative 02/16/2023 2:25 PM OBSTETRICAL ANESTHESIOLOGIST [facility] TYPE 18 Negative Negative 02/16/2023 2:25 PM OBSTETRICAL ANESTHESIOLOGIST [facility] OTHER HIGH RISK TYPES Negative Negative 02/16/2023 2:25 PM OBSTETRICAL ANESTHESIOLOGIST [facility] Other (Cervical) 02/10/2023 12:00 PM CDT 02/11/2023 5:30 PM CDT Narrative [facility] - 02/16/2023 2:25 PM OBSTETRICAL ANESTHESIOLOGIST HPV types 16, 18, 31, 33, 35, 39, 45, 51, 52, 56, 58, 59, 66 and 68 DNA were undetectable or below the pre-set threshold. Methodology: Yuly Philip 4800 HPV Test july Abel GRIJALVA MICROBIOLOGY Final Resu lt [facility] [address] [place] [address], from Last 3 Months or Most Recently Relevant to Health Maintenance Insurance [facility] [employer]VA [employer] Care Teams Missile Inspector Preflight Relationship Specialty Start Date End Date [facility] [address] [place] [address] PCP - General 02/04/23
--- OUTSIDE RECORDS SUMMARY | 2024-08-01 20:27 | XMS_ITS | Encounter Summary ---
Author Organization [facility] Address [address] [place] [address] Care Team Providers Care Aviation Maintenance Instructor Name Role Phone Kwame Chandler MD Primary Care Provider [phone] Tejal Chen APRN SKI PATROLLER Unavaila ble Cheyenne Yeh COMPOSITION SIDING WORKER Unavailable [phone] Jennifer Cain CHW Unavailable [phone] Shruthi Alberto Unavailable Unavailable Kwame Chandler MD Unavailable [phone] Torri DonisC Unavailable [phone] Balbir Talamantes MD Unavailable [phone] Jimmy Ayala MD Unavailable Catracho Domingo MD Unavailable Unavailable Chelsie Gallardo APRN SKI PATROLLER Unavailable Un available Karolina ZhaoC Unavailable Catracho Domingo MD Unavailable Unavailable Karolina ZhaoC Unavailable Nevaeh Gutierres-C Unavailable [phone] Geremias Blackwell MD Primary Care Provider Geremias Blackwell MD Unavailable [phone] Kwame Chandler MD Unavailable [phone] Kwame Chandler MD Unavailable [phone] Tenisha Carrollcristy CUN[place] Unavailable Michelle Dasilva RN Unavailable Unavailab Reason for Visit * Reason Onset Date Comments MyChart Communication 03/05/2020 Encounter Details Date Type Department Care Team (Late st Contact Info) Description 03/05/2020 MyC Medical Advice [facility] [address] [place] [address] Kwame Chandler MD [address] [place] [address] MyChart Communication Social History Tobacco Use Types Packs/Day Years [...] Answer Date Recorded PHQ-2 Score 2 06/16/2019 [place] Depression Scale Answer Date Recorded [place] Depression Score 15 01/07/2019 Last EPDS Self [...] encounter Miscellaneous Notes * Telephone Encounter - Tangela Rehman RN - 03/06/2020 1:16 PM CST Advised via [employer]. Tangela Rehman RN INGS DAM LABORER * Telephone Encounter - Kwame Chandler MD - 03/06/2020 1:05 PM CST Advise Pt that assuming she has had a negative test (which we can certainly order for herif needed), I do not know what this could be. It could be musculoskeletal spasms or a GI issue. Sheshould see PCP for this if she is not and it continues to bother her. INGS DAM LABORER * Telephone Encounter - Tangela Rehman RN - 03/06/2020 12:30 PM CST Please see mychart and advise. Tangela Rehman RN INGS DAM LABORER documented in this encounter Plan of Treatment Not on file documented as of this encounter Visit Diagnoses Not on filedocumented in this encounter Additional Health Concerns Infection Onset Date Last Indicated Resolved Time Rule Out COVID-19 10/23/2023 10/23/2023 10/24/2023 11:55 AM CDT documented as of this encounter Care Teams Aviation Maintenance Instructor Relationship Specialty Start Date End Date Kwame Chandler MD PCP - General defect repairer glassware 12/08/18 04/07/22 Geremias Blackwell MD [address] [place] [address] [address] [place] [phone] PCP - General Internal Medicine 04/08/22 Tejal Chen APRN SKI PATROLLER 420 [facility] 450 [place], [place] [id number] Nurse Practitioner Nurse Practitioner 04/29/19 Cheyenne Yeh LSW [address] [facility] 450 [place], [place] [address] Lead Orchestra Leader Primary Care - CC 01/27/2003/13 Jennifer Cain CHW Community Health Worker Primary Care - CC 01/27/20 Shruthi Alberto Other (see comments) 01/30/20 03/25/20 Kwame Chandler MD Assigned OBGYN Provider 02/03/20 Torri Donis PA-C [address] [place] [address] Assigned Surgical Provider 06/27/20 07/27/21 Balbir Talamantes MD 909 [place] [address] Neurology 07/20/20 Jimmy Ayala MD 65[address] [facility] [place] [place] [address] Assigned Neuroscience Provider 07/29/20 01/24/22 Catracho Domingo MD Assigned PCP 06/21/20 10/25/20 Chelsie Gallardo APRN SKI PATROLLER Assigned PCP 10/26/20 11/17/20 Karolina Zhao PA-C [address] [place] [address] Assigned PCP 11/18/20 03/16/21 Catracho Domingo MD Assigned PCP 03/17/21 04/13/21 Karolina Zhao PA-C [address] [place] [address] Assigned PCP 04/14/21 04/18/22 Nevaeh Gutierres PA-C [facility] [address] [place] [address] Assigned Neuroscience Provider 01/25/22 06/06/22 Geremias Blackwell MD [address] [place] [address] [address] [place] [address] Assigned PCP 04/19/22 Kwame Chandler MD [address] [employer] [facility] 100 [place] [address] defect repairer glassware 08/25/23 Kwame Chandler MD [address] [employer] [facility] 100 [place] [address] Assigned OBGYN Provider 10/04/23 Althea Carroll NP [address] [place] [address] [address] [place] [address] Assigned Pediatric Specialist Provider 02/03/24 Michelle Dasilva RN Lead Orchestra Leader 02/08/24 02/22/24 documented as of this encounter
--- OUTSIDE RECORDS SUMMARY | 2024-08-01 20:28 | XMS_ITS | Encounter Summary ---
Author Organization [facility] Address [address] [place] [address] Care Team Providers Care Outdoor Adventure Instructor Name Role Phone No Ref-Primary, Physician Primary Care Provider Kwame Chandler MD Primary Care Provider [phone] Tejal Chen GUIDE GUIDE Unavaila ble Cheyenne Yeh ZINC PLATE CUTTER Unavailable [phone] Jennifer Cain CHW Unavailable [phone] Shruthi Alberto Unavailable Unavailable Kwame Chandler MD Unavailable [phone] Torri Donis PA-C Unavailable [phone] Balbir Talamantes MD Unavailable [phone] Jimmy Ayala MD Unavailable Catracho Domingo MD Unavailable Unavailable Chelsie Gallardo APRN GUIDE Unavailable Un available Karolina Zhao-C Unavailable Catracho Domingo MD Unavailable Unavailable Karolina Zhao PA-C Unavailable Nevaeh Gutierres PA-C Unavailable [phone] Geremias Blackwell MD Primary Care Provider [phone] Geremias Blackwell MD Unavailable [phone] Kwame Chandler MD Unavailable [phone] Kwame Chandler MD Unavailable [phone] Althea Carroll NP Unavailable Michelle Dasilva RN Unavailable Unavailab Reason for Visit * Reason Onset Date Comments Care 09/06/2018 Encounter Details Date Type Department Care Team (Late st Contact Info) Description 09/06/2018 MyC Medical Advice [facility] [address] [facility] [address] [place] [address] Kwame Chandler MD [address] [facility] [address] [place] [address] Care Social History Tobacco Use Types Packs/Day Years [...] Telephone Encounter - Kwame Chandler MD - 09/07/2018 2:12 PM CDT Advise Pt that the pain outside the vagina is not something I can determine the cause of without seeing her for a visit. She may need to make an appointment just for that separate from her OB visit. As for the fear regarding her C/S which isn't for another 17 weeks, she may want to consider medication for anxiety. I could Rx Zoloft 50 mg daily, which although is an antidepressant, can work for anxiety for some and is generally safe in . If she wants this, please confirm a pharmacy for me to send Rx. Her other option is to see someone in mental health to explore causes and strategies to address this. If she wants a referral to , please provide this. * Telephone Encounter - Analia Navarro RN - 09/07/2018 8:32 AM CDT Please address the my chart message. Holly Navarro RN documented in this encounter Plan of Treatment Not on file documented as of this encounter Visit Diagnoses Not on filedocumented in this encounter Additional Health Concerns Infection Onset Date Last Indicated Resolved Time Rule Out COVID-19 10/23/2023 10/23/2023 10/24/2023 11:55 AM CDT documented as of this encounter Care Teams Outdoor Adventure Instructor Relationship Specialty Start Date End Date No Ref-Primary, Physician PCP - General 07/08/18 12/07/18 Kwame Chandler MD PCP - General power press supervisor 12/08/18 04/07/22 Geremias Blackwell MD [address] [place] [phone] PCP - General Internal Medicine 04/08/22 Tejal Chen, LB GUIDE 420 [facility] 450 [place] [address] Nurse Practitioner Nurse Practitioner 04/29/19 Cheyenne Yeh LSW 420 [facility] 450 [place] [address] Lead Bridge Ironworker Helper Primary Care - CC 01/27/2003/13 Jennifer Cain CHW Community Health Worker Primary Care - CC 01/27/20 Shruthi Alberto Other (see comments) 01/30/20 03/25/20 Kwame Chandler MD Assigned OBGYN Provider 02/03/20 Torri Donis PA-C [address] [place] [address] 315 [place] [address] Assigned Surgical Provider 06/27/20 07/27/21 Balbir Talamantes MD 9 [place] [address] Neurology 07/20/20 Jimmy Ayala MD [address] [place] [address] Assigned Neuroscience Provider 07/29/20 01/24/22 Catracho Domingo MD Assigned PCP 06/21/20 10/25/20 Chelsie Gallardo APRN GUIDE Assigned PCP 10/26/20 11/17/20 Karolina Zhao PA-C [address] [place] [address] Assigned PCP 11/18/20 03/16/21 Catracho Domingo MD Assigned PCP 03/17/21 04/13/21 Karolina Zhao PA-C [address] [place] [address] Assigned PCP 04/14/21 04/18/22 Nevaeh Gutierres PA-C [facility] [address] [facility] [place] [address] Assigned Neuroscience Provider 01/25/22 06/06/22 Geremias Blackwell MD [address] [place] [address] [address] [place] [address] Assigned PCP 04/19/22 Kwame Chandler MD [address] [facility] 100 [place] [address] power press supervisor 08/25/23 Kwame Chandler MD [address] [place] [facility] 100 [place] [address] Assigned OBGYN Provider 10/04/23 [place] [address] [place] [address] [address] [place], [place] [address] Assigned Pediatric Specialist Provider 02/03/24 Michelle Dasilva, TREVIN Lead Bridge Ironworker Helper 02/08/24 02/22/24 documented as of this encounter
--- OUTSIDE RECORDS SUMMARY | 2024-08-01 20:28 | XMS_ITS | Encounter Summary ---
Author Organization [facility] Address [address] [place] [address]. [place] [address] Care Team Providers Care Growth Media Mixer Mushroom Name Role Phone Kwame Chandler MD Primary Care Provider [phone] Tejal Chen APRN SEWER BRICKLAYER Unavaila ble Kwame Chandler MD Unavailable [phone] Torri Donis PA-C Unavailable [phone] Balbir Talamantes MD Unavailable [phone] Jimmy Ayala MD Unavailable Karolina Zhao PA-C Unavailable Nevaeh Gutierres PA-C Unavailable [phone] Geremias Blackwell MD Primary Care Provider [phone] Geremias Blackwell MD Unavailable [phone] Kwame Chandler MD Unavailable [phone] Kwame Chandler MD Unavailable [phone] Althea Carroll NP Unavailable Michelle Dasilva RN Unavailable Unavailab Encounter Details Date Type Department Care Team (Late st Contact Info) Description 05/08/2021 [facility] [address] [place] [address] [place] [address] Kwame Chandler MD [address] [facility] 100 [place] [address] Social History Tobacco Use Types Packs/Day Years [...] Answer Date Recorded PHQ-2 Score 0 07/11/2020 [place] Depression Scale Answer Date Recorded [place] Depression Score 15 01/07/2019 Last EPDS Self Harm Result Not on file 01/07 Comments Yes Sex and Gender Information Value Date Recorded Sex Assigned at Female 07/10/2018 9:24 AM CDT Legal Sex Female 8:37 AM CDT Gender Identity Female 07/10/2018 9:24 AM CDT Sexual Orientation Choose not to disclose 2018 9:24 AM CDT 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 No / Unsure 05/08/2021 1:52 PM SUPERVISOR DIALS documented as of this encounter Plan of Treatment Not on file documented as of this encounter Visit Diagnoses Not on filedocumented in this encounter Additional Health Concerns Infection Onset Date Last Indicated Resolved Time Rule Out COVID-19 10/23/2023 10/23/2023 10/24/2023 11:55 AM CDT documented as of this encounter Care Teams Growth Media Mixer Mushroom Relationship Specialty Start Date End Date Kwame Chandler MD PCP - General drafter mechanical 12/08/18 04/07/22 Geremias Blackwell MD [address] [place] [address] [address] [place] [address] PCP - General Internal Medicine 04/08/22 Tejal Chen APRN CNP [address] [place] [address] 450 [place], [place] [address] Nurse Practitioner Nurse Practitioner 04/29/19 Kwame Chandler MD Assigned OBGYN Provider 02/03/20 Torri Donis PA-C [address] [place] [address] Assigned Surgical Provider 06/27/20 07/27/21 Balbir Talamantes MD [address] [place] [address] Neurology 07/20/20 Jimmy Ayala MD [address] [place] [address] Assigned Neuroscience Provider 07/29/20 01/24/22 Karolina Zhao PA-C [address] [place] [address] Assigned PCP 04/14/21 04/18/22 Nevaeh Gutierres PA-C [facility] [address] [place] [address] Assigned Neuroscience Provider 01/25/22 06/06/22 Geremias Blackwell MD [address] [place] [address] Assigned PCP 04/19/22 Kwame Chandler MD [address] [address] drafter mechanical 08/25/23 Kwame Chandler MD [address] [address] Assigned OBGYN Provider 10/04/23 Althea Carroll NP [address] [place] [address] [address] [place] [address] Assigned Pediatric Specialist Provider 02/03/24 Michelle Dasilva RN Lead Sewing Trimmer 02/08/24 02/22/24 documented as of this encounter
--- OUTSIDE RECORDS SUMMARY | 2024-08-01 20:28 | XMS_ITS | Encounter Summary ---
Author Organization [facility] Address [address] [place] [address] Care Team Providers Care Coin Purse Framer Name Role Phone Kwame Chandler MD Primary Care Provider [phone] Tejal Chen APRN GRAIN MERCHANDISER Unavaila ble Kwame Chandler MD Unavailable [phone] Torri Donis PA-C Unavailable [phone] Balbir Talamantes MD Unavailable [phone] Jimmy Ayala MD Unavailable Karolina Zhao-C Unavailable Catracho Domingo MD Unavailable Unavailable Karolina Zhao-C Unavailable Nevaeh Gutierres PA-C Unavailable [phone] Geremias Blackwell MD Primary Care Provider [phone] Geremias Blackwell MD Unavailable [phone] Kwame Chandler MD Unavailable [phone] Kwame Chandler MD Unavailable [phone] Althea Carroll NP Unavailable Michelle Dasilva RN Unavailable Unavailab le Reason for Visit * Reason Onset Date Comments Care 03/13/2021 Encounter Details Date Type Department Care Team (Late st Contact Info) Description 03/13/2021 MyC Medical Advice [facility] [address] [place] [address] Kwame Chandler MD [address] [place] [address] Care Social History Tobacco Use Types Packs/Day [...] Answer Date Recorded PHQ-2 Score 0 07/11/2020 [place] Depression Scale Answer Date Recorded [place] Depression Score 15 01/07/2019 Last EPDS Self Harm Result Not on file 01/07 Comments Yes Sex and Gender Information Value Date Recorded Sex Assigned at Female 07/10/2018 9:24 AM CDT Legal Sex Female 8:37 AM CDT Gender Identity Female 07/10/2018 9:24 AM CDT Sexual Orientation Choose not to disclose 2018 9:24 AM CDT 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 No / Unsure 03/11/2021 1:42 PM ENVIRONMENTAL MANAGEMENT SPECIALIST documented as of this encounter Miscellaneous Notes * Telephone Encounter - Kwame Chandler MD - 03/15/2021 9:00 AM CST Yes, agree with letter. Please provide for Pt. 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 No greater than 20lbs? Letter started Ivelisse Bear CAT SCAN TECHNOLOGIST RONMENTAL MANAGEMENT SPECIALIST documented in this encounter Plan of Treatment Not on file documented as of this encounter Visit Diagnoses Not on filedocumented in this encounter Additional Health Concerns Infection Onset Date Last Indicated Resolved Time Rule Out COVID-19 10/23/2023 10/23/2023 10/24/2023 11:55 AM CDT documented as of this encounter Care Teams Coin Purse Framer Relationship Specialty Start Date End Date Kwame Chandler MD PCP - General exhibits coordinator 12/08/18 04/07/22 Geremias Blackwell MD [address] [place] [phone] PCP - General Internal Medicine 04/08/22 Tejal Chen APRN GRAIN MERCHANDISER [address] [place] [address] 450 [place] [address] Nurse Practitioner Nurse Practitioner 04/29/19 Kwame Chandler MD Assigned OBGYN Provider 02/03/20 Torri Donis PA-C [address] [place], [place] [address] Assigned Surgical Provider 06/27/20 07/27/21 Balbir Talamantes MD [address] [place] [address] Neurology 07/20/20 Jimmy Ayala MD [address] [place] [address] Assigned Neuroscience Provider 07/29/20 01/24/22 Karolina Zhao PA-C [address] [place] [address] Assigned PCP 11/18/20 03/16/21 Catracho Domingo MD Assigned PCP 03/17/21 04/13/21 Karolina Zhao PA-C [address] [place] [address] Assigned PCP 04/14/21 04/18/22 Nevaeh Gutierres PA-C [facility] [address] [place] [address] Assigned Neuroscience Provider 01/25/22 06/06/22 Geremias Blackwell MD [address] [place] [address] 220 [place] [phone] Assigned PCP 04/19/22 Kwame Chandler MD [address] [address] exhibits coordinator 08/25/23 Kwame Chandler MD [address] [address] Assigned OBGYN Provider 10/04/23 Althea Carroll NP [address] [place] [address] Assigned Pediatric Specialist Provider 02/03/24 Michelle Dasilva, RN Lead Coating Technician 02/08/24 02/22/24 documented as of this encounter
--- OUTSIDE RECORDS SUMMARY | 2024-08-01 20:28 | XMS_ITS | Encounter Summary ---
Author Organization [facility] Address [address] [place] [address]. [place] [address] Care Team Providers Care Web Applications Programmer Name Role Phone Kwame Chandler MD Primary Care Provider + [phone] Tejal Chen APRN ELECTRICAL MECHANICAL TECHNICIAN Unavaila ble Kwame Chandler MD Unavailable [phone] Torri Donis PA-C Unavailable [phone] Balbir Talamantes MD Unavailable [phone] Jimmy Ayala MD Unavailable Karolina Zhao PA-C Unavailable Nevaeh Gutierres PA-C Unavailable [phone] Geremias Blackwell MD Primary Care Provider [phone] Geremias Blackwell MD Unavailable [phone] Kwame Chandler MD Unavailable [phone] Kwame Chandler MD Unavailable [phone] Althea Carroll NP Unavailable Michelle Dasilva RN Unavailable Unavailab Encounter Details Date Type Department Care Team (Late st Contact Info) Description 06/20/2021 [facility] [address] [place] [address] Kwame Chandler MD [address] [facility] [address] [place] [address] Pre-operative laboratory examination (Primary Dx) Social History [...] Answer Date Recorded PHQ-2 Score 0 07/11/2020 [place] Depression Scale Answer Date Recorded [place] Depression Score 15 01/07/2019 Last EPDS Self Harm Result Not on file 01/07 Comments Yes Sex and Gender Information Value Date Recorded Sex Assigned at Female 07/10/2018 9:24 AM CDT Legal Sex Female 8:37 AM CDT Gender Identity Female 07/10/2018 9:24 AM CDT Sexual Orientation Choose not to disclose 2018 9:24 AM CDT 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 No / Unsure 06/19/2021 3:20 PM ARC CUTTER [employer] documented as of this encounter Plan of Treatment Not on file documented as of this encounter Results * Treponema Abs w Reflex to RPR and Titer (06/24/2021 2:16 PM CDT) Treponema Antibody Total Nonreactive Nonreactive 06/25/2021 10:48 AM CDT [facility] DO Blood STRUCTURE OF RIGHT UPPER LIMB / Unknown Venipuncture / Unknown 06/24/2021 2:16 PM CDT 06/24/2021 2:16 PM CDT us Kwame Chandler MD LAB - BLOOD ORDERABLES Final R esult [facility]ENDO Specialty Core/Prot/Endo [address] [facility] [address], [address] [place] [address], [facility] [phone] * Hemoglobin (06/24/2021 2:16 PM CDT) Hemoglobin 12.6 11.7 - 15.7 g/dL 06/24/2021 2:24 PM CDT [facility] Blood STRUCTURE OF RIGHT UPPER LIMB / Unknown Venipuncture / Unknown 06/24/2021 2:16 PM CDT 06/24/2021 2:16 PM CDT us Kwame Chandler MD LAB - BLOOD ORDERABLES Final R esult [facility] [address] [facility], [address] [place] [address], [facility] [phone] documented in this encounter Visit Diagnoses Diagnosis Pre-operative laboratory examination- Primary Pre-procedural laboratory examination documented in this encounter Additional Health Concerns Infection Onset Date Last Indicated Resolved Time Rule Out COVID-19 10/23/2023 10/23/2023 10/24/2023 11:55 AM CDT documented as of this encounter Care Teams Web Applications Programmer Relationship Specialty Start Date End Date Kwame Chandler MD PCP - General leader tier 12/08/18 04/07/22 Geremias Blackwell MD [address] [place] [phone] PCP - General Internal Medicine 04/08/22 Tejal Chen APRN ELECTRICAL MECHANICAL TECHNICIAN [address] [place] [address] [address] [place] [address] Nurse Practitioner Nurse Practitioner 04/29/19 Kwame Chandler MD Assigned OBGYN Provider 02/03/20 Torri Donis PA-C [address] [place] [address] Assigned Surgical Provider 06/27/20 07/27/21 Balbir Talamantes MD [address] [place] [address] Neurology 07/20/20 Jimmy Ayala MD [address] [place] [address] Assigned Neuroscience Provider 07/29/20 01/24/22 Karolina Zhao PA-C [address] [place] [address] Assigned PCP 04/14/21 04/18/22 Nevaeh Gutierres PA-C [facility] [address] [place] [address] Assigned Neuroscience Provider 01/25/22 06/06/22 Geremias Blackwell MD [address] [place] [address] Assigned PCP 04/19/22 Kwame Chandler MD [address] [facility] 100 [place] [address] leader tier 08/25/23 Kwame Chandler MD [address] [facility] [address] [place] [address] Assigned OBGYN Provider 10/04/23 Althea Carroll NP [address] [place], [place] [address] Assigned Pediatric Specialist Provider 02/03/24 Michelle Dasilva, RN Lead Senior Interactive Developer 02/08/24 02/22/24 documented as of this encounter
[2024-08-01 20:48] VITALS: BP 134/83; PULSE 102; RESP 16; TEMP 37.1; O2SAT 98
--- NOTE | 2024-08-01 21:13 | ED.GENADULT ---
HPI - General Adult General Time Seen by Provider: 21:13 Date Seen: 08/01/24 Chief complaint: Cough Stated complaint: Headache, sore throat Time Seen by Provider: 08/01/24 21:13 Source: patient and RN notes reviewed Mode of arrival: ambulatory Limitations: no limitations History of Present Illness HPI narrative: Olga is a very pleasant 34-year-old female previously healthy who comes to the emergency room for evaluation regarding sore throat nasal congestion headache and cough. Patient notes that she has had a dry and sore throat for the last 2 weeks when she has been awakening in the morning. On ThursdayJuly 29 she had the onset of a cough with a small amount of congestion and then some blood when she would blow her nose. She notes that her throat is a especially sore. Denies any ear pain. Does not know if she has had a fever but does describe chills and shaking at times. States that she could not get warm. Her daughter also presents and is ill with cold-like symptoms. Patient notes that she has been using Tylenol but has not taken any today. She describes using 2 tablets every 4 hours until today. Patient denies tobacco use, underlying lung disease. No vomiting or diarrhea. Has had some nausea. Related Data Home Medications ?Medication ?Instructions ?Recorded ?Confirmed No Known Home Medications 08/01/24 08/01/24 Allergies Allergy/AdvReac Type Severity Reaction Status Date / Time aspirin Allergy Unknown Verified 03/28/23 11:07 nitrofurantoin (From Allergy Unknown Verified 03/28/23 11:07 Macrobid) Review of Systems Status of ROS: Reports: 6 or more systems reviewed and unremarkable except as noted in History and below Const: Reports: fever, chills and fatigue Cardio: Denies: chest pain, swelling of feet/ankles or shortness of breath with exertion Resp: Reports: cough and coughing up blood (Upon further discussion this is mostly phlegm with a streak of blood in it); Denies: shortness of breath GI: Reports: nausea; Denies: abdominal pain, vomiting or diarrhea : Denies: painful urination Neuro: Reports: headache Endo: Reports: fatigue PFSH PFSH Surgical History History of ?Z98.891 - History of uterine scar from previous surgery (ICD-10) Social History Narrative: , 3 children. Nonsmoker, no alcohol use Smoking Status: Never smoker Do you use any of these nicotine containing products: None Non-prescribed substance use: denies use Exam Narrative: Exam Narrative: Alert and oriented. EOM is full. TM on the left is partially obscured by cerumen. Normal right TM. Oral cavity shows slight swelling of the soft palate posterior oropharynx. There is increased erythema. Positive for anterior cervical lymphadenopathy. Airway is patent. Moist mucous membranes. Heart with a tachycardic rate normal rhythm. Lungs are are with crackles in the right lower lung base. Abdomen soft. Nontoxic in appearance. Const: Vital Signs, click to edit/add: Vital Signs - 24 hr 08/01/24 20:48 Temperature 98.8 F Pulse Rate [Pulse Oximeter] 102 H Respiratory Rate 16 Blood Pressure [Ri ght Upper Arm] 134/83 Pulse Oximetry 98 Oxygen Delivery Me thod Room Air Documenting provider has reviewed patient's vital signs: yes Course Course ED Course: Triple viral swab is negative for COVID influenza and RSV. I do suspect that patient may have strep given the appearance of her tonsils and that of her daughters. She describes however a cough with some blood. Will also check a chest x-ray. Vital Signs Vital signs: Initial Vital Signs Temperature 98.8 F 08/01/24 20:48 Temperature Source Temporal Artery Scan 08/01/24 20:48 Pulse Rate 102 H 08/01/24 20:48 Respiratory Rate 16 08/01/24 20:48 Blood Pressure 134/83 08/01/24 20:48 Blood Pressure Mean 100 08/01/24 20:48 Pulse Oximetry 98 08/01/24 20:48 Oxygen Delivery Method Room Air 08/01/24 20:48 Vital Signs Temperature 98.8 F 08/01/24 20:48 Pulse Rate 102 H 08/01/24 20:48 Respiratory Rate 16 08/01/24 20:48 Blood Pressure 134/83 08/01/24 20:48 Pulse Oximetry 98 08/01/24 20:48 Oxygen Delivery Method Room Air 08/01/24 20:48 Temperature 98.8 F 08/01/24 20:48 Pulse Rate 102 H 08/01/24 20:48 Respiratory Rate 16 08/01/24 20:48 Blood Pressure 134/83 08/01/24 20:48 Pulse Oximetry 98 08/01/24 20:48 Oxygen Delivery Method Room Air 08/01/24 20:48 Medical Decision Making MDM Narrative Medical decision making narrative: 1. Strep pharyngitis-patient has tested positive for strep. Chest x-ray reassuring with history of hemoptysis. Suspect blood was actually from oropharynx. Recommend amoxicillin 500 mg p.o. b.i.d. times 10 days. This was put into our [employer] machine. Recommend ibuprofen or Tylenol as needed. Return for worsening symptoms. 2. Disposition-home at this time. Have also described use of Tylenol as 1 g every 6 hours and not every 4 hours as she had been using it. I have told her that ibuprofen is safe for her to use as well. Medical Records Medical records reviewed: Yes I reviewed the patient's medical records Lab Data Lab results reviewed: Yes I reviewed the patient's lab results Labs: Lab Results 08/01/24 08/01/24 Range/Units 20:45 22:19 SARS-CoV-2 (PCR) Negative SARS-CoV-2 (Negative) Influenza Type A (PCR) Negative PCR FLU A (Negative) Influenza Type B (PCR) Negative PCR FLU B (Negative) RSV (PCR) Negative PCR RSV (Negative) Group A Strep DNA DETECTED A (Not Detectd) Imaging Data Chest x-ray: Attestation: I have reviewed the pertinent imaging results. My impression: I do not note any acute lung markings Radiologist's impression: Cardiovascular and mediastinum: Heart size is normal. Unremarkable mediastinum. Lungs and pleural spaces: Lungs are clear. No sign of infiltrate or mass. No sign of pleural effusion. No pneumothorax. Bones and soft tissues: No significant findings. IMPRESSION: No acute or significant findings. Discharge Plan Discharge Clinical Impression: Strep pharyngitis Patient Disposition: Home, Self-Care Condition: Unchanged Additional Instructions: Amoxicillin as directed for 10 days. You should start feeling better by tomorrow night. You are contagious until you have been on antibiotics for 24 hours. Return as needed for worsening symptoms. Prescriptions: No Action No Known Home Medications Follow Up/Referrals: Provider,Not a Local [Primary Care Provider] - Stand Alone Forms: NMT Medical Info Instructions
[2024-08-01 21:39] LABS: PCR FLU A Negative PCR FLU A (Negative); PCR FLU B Negative PCR FLU B (Negative); PCR RSV Negative PCR RSV (Negative); SARS PCR* Negative SARS-CoV-2 (Negative)
--- NOTE | 2024-08-01 21:59 | CRLHL7_ITS ---
For Patients: As a result of the Century Cures Act, medical imaging exams and procedure reports are released immediately into your electronic medical record. You may view this report before your referring provider. If you have questions, please contact your health care provider. INDICATION: Cough. TECHNIQUE: Chest 1 views. COMPARISON: None. FINDINGS: Cardiovascular and mediastinum: Heart size is normal. Unremarkable mediastinum. Lungs and pleural spaces: Lungs are clear. No sign of infiltrate or mass. No sign of pleural effusion. No pneumothorax. Bones and soft tissues: No significant findings. IMPRESSION: No acute or significant findings. Dictated by Franco Sotelo MD @ 08/01/2024 10:55:38 PM (Electronically Signed)
--- OUTSIDE RECORDS SUMMARY | 2024-08-01 22:24 | XMS_ITS | Encounter Summary ---
Author Organization [facility] Address [address] [place] [address] Care Team Providers Care Research Assoc Name Role Phone Kwame Chandler MD Primary Care Provider [phone] Tejal Chen APRN DRILL RUNNER Unavaila ble Kwame Chandler MD Unavailable + [phone] Torri Donis PA-C Unavailable [phone] Balbir Talamantes MD Unavailable [phone] Jimmy Ayala MD Unavailable Karolina Zhao-C Unavailable Catracho Domingo MD Unavailable Unavailable Karolina ZhaoC Unavailable Nevaeh Gutierres-C Unavailable [phone] Geremias Blackwell MD Primary Care Provider [phone] Geremias Blackwell MD Unavailable [phone] Kwame Chandler MD Unavailable + [phone] Kwame [...] Answer Date Recorded PHQ-2 Score 4 03/31/2024 [place] Depression Scale Answer Date Recorded [place] Depression Scale Total 13 03/28/2024 The thought [...] in an abandoned building, in an overnight half-way, or couch-surfing.) No 02/03/2024 Are you worried [...] 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 No / Unsure 04/08/2022 10:39 AM PAPER CONE MACHINE TENDER documented as of this encounter Plan of Treatment Not on file documented as of this encounter Visit Diagnoses Not on filedocumented in this encounter Additional Health Concerns Infection Onset Date Last Indicated Resolved Time Rule Out COVID-19 10/23/2023 10/23/2023 10/24/2023 11:55 AM CDT documented as of this encounter Care Teams Research Assoc Relationship Specialty Start Date End Date Kwame Chandler MD PCP - General travel ot 12/08/18 04/07/22 Geremias Blackwell MD [address] [place] [address] [address] [place] [address] PCP - General Internal Medicine 04/08/22 Tejal Chen APRN DRILL RUNNER [address] [place] [address] [address] [place], [place] [address] Nurse Practitioner Nurse Practitioner 04/29/19 Kwame Chandler MD Assigned OBGYN Provider 02/03/20 Torri Donis, PALeidyC [address] [place] [address] Assigned Surgical Provider 06/27/20 07/27/21 Balbir Talamantes MD [address] [place] [address] Neurology 07/20/20 Jimmy Ayala MD [address] [place] [address] Assigned Neuroscience Provider 07/29/20 01/24/22 Karolina Zhao PA-C [address] [place] [address] Assigned PCP 11/18/20 03/16/21 Catracho Domingo MD Assigned PCP 03/17/21 04/13/21 Karolina Zhao PA-C [address] [place] [address] Assigned PCP 04/14/21 04/18/22 Nevaeh Gutierres PA-C [facility] [address] [place] [address] Assigned Neuroscience Provider 01/25/22 06/06/22 Geremias Blackwell MD [address] [place] [address] [address] [place] [address] Assigned PCP 04/19/22 Kwame Chandler MD [address] [facility] 100 [place] [address] travel ot 08/25/23 Kwame Chandler MD [address] [facility] [address] [place] [address] Assigned OBGYN Provider 10/04/23 Althea Carroll NP [address] [place] [address] [address] [place] [address] Assigned Pediatric Specialist Provider 02/03/24 Michelle Dasilva, RN Lead Survey Crew Chief 02/08/24 02/22/24 documented as of this encounter
--- OUTSIDE RECORDS SUMMARY | 2024-08-01 22:25 | XMS_ITS | Clinical Summary ---
Author Organization [facility] Address [address] [place] [address] Care Team Providers Care Deck Engineer Name Role Phone Unavailable Primary Care Provider [...]
--- OUTSIDE RECORDS SUMMARY | 2024-08-01 22:25 | XMS_ITS | Encounter Summary ---
Author Organization [facility] Address [address] [place] [address] Care Team Providers Care Title Investigator Name Role Phone Kwame Chandler MD Primary Care Provider [phone] Tejal Chen APRN COMMERCIAL LINES ACCOUNT EXECUTIVE Unavaila ble Cheyenne Yeh BLUNGER MACHINE OPERATOR Unavailable [phone] Jennifer Cain CHW Unavailable [phone] Shruthi Alberto Unavailable Unavailable Kwame Chandler MD Unavailable [phone] Torri DonisC Unavailable [phone] Balbir Talamantes MD Unavailable [phone] Jimmy Ayala MD Unavailable Catracho Domingo MD Unavailable Unavailable Chelsie Gallardo APRN COMMERCIAL LINES ACCOUNT EXECUTIVE Unavailable Un available Karolina ZhaoC Unavailable Catracho Domingo MD Unavailable Unavailable Karolina ZhaoC Unavailable Nevaeh Gutierres-C Unavailable [phone] Geremias Blackwell MD Primary Care Provider Geremias Blackwell MD Unavailable [phone] Kwame Chandler MD Unavailable [phone] Kwame Chandler MD Unavailable [phone] Tenisha Carrollcristy [place] Unavailable Michelle Dasilva RN Unavailable Unavailab Reason for Visit * Reason Onset Date Comments MyChart Communication 03/05/2020 Encounter Details Date Type Department Care Team (Late st Contact Info) Description 03/05/2020 MyC Medical Advice [facility] [address] [place] [address] Kwame Chandler MD [address] [place] [address] MyChart Communication Social History Tobacco [...] Answer Date Recorded PHQ-2 Score 2 06/16/2019 [place] Depression Scale Answer Date Recorded [place] Depression Score 15 01/07/2019 Last EPDS Self [...] - 03/06/2020 1:16 PM CST Advised via [employer]. Tangela Rehman RN PULLER * Telephone Encounter - Kwame Chandler MD - 03/06/2020 1:05 PM CST Advise Pt that assuming she has had a negative test (which we can certainly order for herif needed), I do not know what this could be. It could be musculoskeletal spasms or a GI issue. Sheshould see PCP for this if she is not and it continues to bother her. PULLER * Telephone Encounter - Tangela Rehman RN - 03/06/2020 12:30 PM CST Please see mychart and advise. Tangela Rehman RN PULLER documented in this encounter Plan of Treatment Not on file documented as of this encounter Visit Diagnoses Not on filedocumented in this encounter Additional Health Concerns Infection Onset Date Last Indicated Resolved Time Rule Out COVID-19 10/23/2023 10/23/2023 10/24/2023 11:55 AM CDT documented as of this encounter Care Teams Title Investigator Relationship Specialty Start Date End Date Kwame Chandler MD PCP - General trench pipe layer helper 12/08/18 04/07/22 Geremias Blackwell MD [address] [place] [address] [address] [place] [phone] PCP - General Internal Medicine 04/08/22 Tejal Chen APRN COMMERCIAL LINES ACCOUNT EXECUTIVE [address] [facility] [address] [place], [place] [id number] Nurse Practitioner Nurse Practitioner 04/29/19 Cheyenne Yeh LSW [address] [facility] 450 [place], [place] [address] Lead Optical Laboratory Technician Primary Care - CC 01/27/2003/13 Jennifer Cain CHW Community Health Worker Primary Care - CC 01/27/20 Shruthi Alberto Other (see comments) 01/30/20 03/25/20 Kwame Chandler MD Assigned OBGYN Provider 02/03/20 Torri Donis PA-C [address] [place] [address] Assigned Surgical Provider 06/27/20 07/27/21 Balbir Talamantes MD [address]09 [place] [address] Neurology 07/20/20 Jimmy Aylaa MD [address] [facility] [place] [place] [address] Assigned Neuroscience Provider 07/29/20 01/24/22 Catracho Domingo MD Assigned PCP 06/21/20 10/25/20 Chelsie Gallardo APRN COMMERCIAL LINES ACCOUNT EXECUTIVE Assigned PCP 10/26/20 11/17/20 Karolina Zhao PA-C [address] [place] [address] Assigned PCP 11/18/20 03/16/21 Catracho Domingo MD Assigned PCP 03/17/21 04/13/21 Karolina Zhao PA-C [address] [place] [address] Assigned PCP 04/14/21 04/18/22 Nevaeh Gutierres PA-C [facility] [address] [place] [address] Assigned Neuroscience Provider 01/25/22 06/06/22 Geremias Blackwell MD [address] [place] [address] [address] [place] [address] Assigned PCP 04/19/22 Kwame Chandler MD [address] [facility] 100 [place] [address] trench pipe layer helper 08/25/23 Kwame Chandler MD [address] [facility] 100 [place] [address] Assigned OBGYN Provider 10/04/23 Althea Carroll NP [address] [place] [address] [address] [place] [address] Assigned Pediatric Specialist Provider 02/03/24 Michelle Dasilva RN Lead Optical Laboratory Technician 02/08/24 02/22/24 documented as of this encounter
--- OUTSIDE RECORDS SUMMARY | 2024-08-01 22:25 | XMS_ITS | Encounter Summary ---
Author Organization [place] Address [address] [place] [address]. [place] [address] Care Team Providers Care Head Esthetician Name Role Phone Kwame Chandler MD Primary Care Provider [phone] Tejal Chen APRN PUBLIC SERVICE ADMINISTRATOR Unavaila ble Kwame Chandler MD Unavailable [phone] Torri Donis PA-C Unavailable [phone] Balbir Talamantes MD Unavailable [phone] Jimmy Ayala MD Unavailable Karolina Zhao PA-C Unavailable Nevaeh Gutierres PA-C Unavailable [phone] Geremias Blackwell MD Primary Care Provider [phone] Geremias Blackwell MD Unavailable [phone] Kwame Chandler MD Unavailable [phone] Kwame Chandler MD Unavailable [phone] Althea Carroll NP Unavailable Michelle Dasilva RN Unavailable Unavailab Encounter Details Date Type Department Care Team (Late st Contact Info) Description 06/20/2021 [facility] [address] [place] [address] Kwame Chandler MD [address] [facility] [address] [place] [address] Pre-operative laboratory examination (Primary Dx) Social History [...] Answer Date Recorded PHQ-2 Score 0 07/11/2020 [place] Depression Scale Answer Date Recorded [place] Depression Score 15 01/07/2019 Last EPDS Self Harm Result Not on file 01/07 Comments Yes Sex and Gender Information Value Date Recorded Sex Assigned at Female 07/10/2018 9:24 AM CDT Legal Sex Female 8:37 AM CDT Gender Identity Female 07/10/2018 9:24 AM CDT Sexual Orientation Choose not to disclose 2018 9:24 AM CDT 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 No / Unsure 06/19/2021 3:20 PM PRINTER OPERATOR documented as of this encounter Plan of [...] esult [facility] SPECIALTY CORE/PROT/ENDO Specialty Core/Prot/Endo [address] [facility] [address], [address] [place] [address], [facility] [phone] * Hemoglobin (06/24/2021 2:16 PM CDT) Hemoglobin 12.6 11.7 - 15.7 g/dL 06/24/2021 2:24 PM CDT [facility] LABORATORY Blood STRUCTURE OF RIGHT UPPER LIMB / Unknown Venipuncture / Unknown 06/24/2021 2:16 PM CDT 06/24/2021 2:16 PM CDT us Kwame Chandler MD LAB - BLOOD ORDERABLES Final R esult RI LABORATORY [facility] [address] [facility], [address] [place] [address], [facility] [phone] documented in this encounter Visit Diagnoses Diagnosis Pre-operative laboratory examination- Primary Pre-procedural laboratory examination documented in this encounter Additional Health Concerns Infection Onset Date Last Indicated Resolved Time Rule Out COVID-19 10/23/2023 10/23/2023 10/24/2023 11:55 AM CDT documented as of this encounter Care Teams Head Esthetician Relationship Specialty Start Date End Date Kwame Chandler MD PCP - General vibratory pile driver 12/08/18 04/07/22 Geremias Blackwell MD [address] [place] [address] PCP - General Internal Medicine 04/08/22 Tejal Chen APRN PUBLIC SERVICE ADMINISTRATOR [address] [place] [address] 450 [place] [address] Nurse Practitioner Nurse Practitioner 04/29/19 Kwame Chandler MD Assigned OBGYN Provider 02/03/20 Torri Donis PA-C [address] [place] [address] Assigned Surgical Provider 06/27/20 07/27/21 Balbir Talamantes MD 909 [place] [address] Neurology 07/20/20 Jimmy Ayala MD [address] [place] [address] Assigned Neuroscience Provider 07/29/20 01/24/22 Karolina Zhao PA-C [address] [place] [address] Assigned PCP 04/14/21 04/18/22 Nevaeh Gutierres PA-C [facility] [address] [place] [address] Assigned Neuroscience Provider 01/25/22 06/06/22 Geremias Blackwell MD [address] [place] [address] Assigned PCP 04/19/22 Kwame Chandler MD [address] [facility] 100 [place] [address] vibratory pile driver 08/25/23 Kwame Chandler MD [address] [facility] [address] [place] [address] Assigned OBGYN Provider 10/04/23 Althea Carroll NP [address] [place], [place] [address] Assigned Pediatric Specialist Provider 02/03/24 Michelle Dasilva, RN Lead Braid Cutter 02/08/24 02/22/24 documented as of this encounter
--- OUTSIDE RECORDS SUMMARY | 2024-08-01 22:25 | XMS_ITS | Encounter Summary ---
Author Organization [place] Address [address] [place] [address] Care Team Providers Care Self Sealing Fuel Tank Repairer Name Role Phone Kwame Chandler MD Primary Care Provider [phone] Tejal Chen APRN INTEGRATED LOGISTICS PROGRAMS DIRECTOR Unavaila ble Cheyenne Yeh COMBINATION MAN Unavailable [phone] Jennifer Cain CHW Unavailable [phone] Shruthi Alberto Unavailable Unavailable Kwame Chandler MD Unavailable [phone] Torri DonisC Unavailable [phone] Balbir Talamantes MD Unavailable [phone] Jimmy Ayala MD Unavailable Catracho Domingo MD Unavailable Unavailable Chelsie Gallardo APRN INTEGRATED LOGISTICS PROGRAMS DIRECTOR Unavailable Un available Karolina ZhaoC Unavailable Catracho Domingo MD Unavailable Unavailable Karolina ZhaoC Unavailable Nevaeh Gutierres-C Unavailable [phone] Geremias Blackwell MD Primary Care Provider Geremias Blackwell MD Unavailable [phone] Kwame Chandler MD Unavailable [phone] Kwame Chandler MD Unavailable [phone] Althea Carroll NP Unavailable Michelle Dasilva RN Unavailable Unavailab le Encounter Details Date Type Department Care Team (Late st Contact Info) Description 08/27/2019 MyC Medical Advice [facility] [address] [place] [place] [address] [place] [address] Kwame Chandler MD [address] [place] [address] Social History Tobacco Use Types Packs/Day Years [...] Answer Date Recorded PHQ-2 Score 2 06/16/2019 [place] Depression Scale Answer Date Recorded [place] Depression Score 15 01/07/2019 Last EPDS Self [...] documented as of this encounter Care Teams Self Sealing Fuel Tank Repairer Relationship Specialty Start Date End Date Kwame Chandler MD PCP - General double ending machine operator 12/08/18 04/07/22 Geremias Blackwell MD [address] [place] [address] PCP - General Internal Medicine 04/08/22 Tejal Chen, FOOTWEAR SALES ASSOCIATE INTEGRATED LOGISTICS PROGRAMS DIRECTOR [address] [id number] Nurse Practitioner Nurse Practitioner 04/29/19 Cheyenne Yeh, COMBINATION MAN [address] [address] Lead Fur Farmer Primary Care - CC 01/27/2003/13 Jennifer Cain, [facility] Community Health Worker Primary Care - CC 01/27/20 Shruthi Alberto Other (see comments) 01/30/20 03/25/20 Kwame Chandler MD Assigned OBGYN Provider 02/03/20 Torri Donis, PA-C [address] [place] [address] Assigned Surgical Provider 06/27/20 07/27/21 Balbir Talamantes MD [address] [place] [address] Neurology 07/20/20 Jimmy Ayala MD [address] [place] [address] Assigned Neuroscience Provider 07/29/20 01/24/22 Catracho Domingo MD Assigned PCP 06/21/20 10/25/20 Chelsie Gallardo APRN INTEGRATED LOGISTICS PROGRAMS DIRECTOR Assigned PCP 10/26/20 11/17/20 Karolina Zhao PA-C [address] [place] [address] Assigned PCP 11/18/20 03/16/21 Catracho Domingo MD Assigned PCP 03/17/21 04/13/21 Karolina Zhao PA-C [address] [place] [address] Assigned PCP 04/14/21 04/18/22 Nevaeh Gutierres PA-C [facility] [address] [place] [address] Assigned Neuroscience Provider 01/25/22 06/06/22 Geremias Blackwell MD [address] [place] [address] 220 [place] [address] Assigned PCP 04/19/22 Kwame Chandler MD [address] [address] double ending machine operator 08/25/23 Kwame Chandler MD [address] [address] Assigned OBGYN Provider 10/04/23 Althea Carroll NP [address] [place] [address] [address] [place] [address] Assigned Pediatric Specialist Provider 02/03/24 Michelle Dasilva, RN Lead Fur Farmer 02/08/24 02/22/24 documented as of this encounter
--- OUTSIDE RECORDS SUMMARY | 2024-08-01 22:25 | XMS_ITS | Encounter Summary ---
Author Organization [place] Address [address] [place] [address] Care Team Providers Care Commissary Manager Name Role Phone Kwame Chandler MD Primary Care Provider [phone] Tejal Chen APRN NICKEL PLANT OPERATOR Unavaila ble Cheyenne Yeh I O PSYCHOLOGIST Unavailable [phone] Jennifer Cain CHW Unavailable [phone] Shruthi Alberto Unavailable Unavailable Kwame Chandler MD Unavailable [phone] Torri DonisC Unavailable [phone] Balbir Talamantes MD Unavailable [phone] Jimmy Ayala MD Unavailable Catracho Domingo MD Unavailable Unavailable Chelsie Gallardo APRN NICKEL PLANT OPERATOR Unavailable Un available Karolina ZhaoC Unavailable Catracho Domingo MD Unavailable Unavailable Karolina ZhaoC Unavailable Nevaeh Gutierres-C Unavailable [phone] Geremias Blackwell MD Primary Care Provider Geremias Blackwell MD Unavailable [phone] Kwame Chandler MD Unavailable [phone] Kwame Chandler MD Unavailable [phone] Althea Carroll NP Unavailable Michelle Dasilva RN Unavailable Unavailab le Encounter Details Date Type Department Care Team (Late st Contact Info) Description 09/12/2019 MyC Medical Advice [facility] [address] [facility] [address] 4th [place] [address] Tejal Chen, LB NICKEL PLANT OPERATOR [address] [facility] 450 [place] [address] Social History Tobacco Use Types Packs/Day Years [...] Answer Date Recorded PHQ-2 Score 2 06/16/2019 [place] Depression Scale Answer Date Recorded [place] Depression Score 15 01/07/2019 Last EPDS Self [...] documented as of this encounter Care Teams Commissary Manager Relationship Specialty Start Date End Date Kwame Chandler MD PCP - General turbine mechanic 12/08/18 04/07/22 Geremias Blackwell MD [address] [place] [address] PCP - General Internal Medicine 04/08/22 Tejal Cehn, DIGITAL PRINT OPERATOR NICKEL PLANT OPERATOR [address] [id number] Nurse Practitioner Nurse Practitioner 04/29/19 Cheyenne Yeh, I O PSYCHOLOGIST [address] [address] Lead Customer Sales Consultant Primary Care - CC 01/27/2003/13 Jennifer Cain, [facility] Community Health Worker Primary Care - CC 01/27/20 Shruthi Alberto Other (see comments) 01/30/20 03/25/20 Kwame Chandler MD Assigned OBGYN Provider 02/03/20 Torri Donis, PA-C [address] 315 [place] [address] Assigned Surgical Provider 06/27/20 07/27/21 Balbir Talamantes MD [address] [place] [address] Neurology 07/20/20 Jimmy Ayala MD [address] [place] [address] Assigned Neuroscience Provider 07/29/20 01/24/22 Catracho Domingo MD Assigned PCP 06/21/20 10/25/20 Chelsie Gallardo APRN NICKEL PLANT OPERATOR Assigned PCP 10/26/20 11/17/20 Karolina Zhao PA-C [address] [place] [address] Assigned PCP 11/18/20 03/16/21 Catracho Domingo MD Assigned PCP 03/17/21 04/13/21 Karolina Zhao PA-C [address] [place] [address] Assigned PCP 04/14/21 04/18/22 Nevaeh Gutierres PA-C [facility] [address] [facility] [place] [address] Assigned Neuroscience Provider 01/25/22 06/06/22 Geremias Blackwell MD [address] [place] [address] 220 [place] [address] Assigned PCP 04/19/22 Kwame Chandler MD [address] [address] turbine mechanic 08/25/23 Kwame Chandler MD [address] [address] Assigned OBGYN Provider 10/04/23 Althea Carroll NP [address] [place] [address] [address] [place] [address] Assigned Pediatric Specialist Provider 02/03/24 Michelle Dasilva RN Lead Customer Sales Consultant 02/08/24 02/22/24 documented as of this encounter
--- OUTSIDE RECORDS SUMMARY | 2024-08-01 22:25 | XMS_ITS | Clinical Summary ---
Author Organization [place] Address [address] [place] [address] Care Team Providers Care Cook Boat Name Role Phone Tejal Chen APRN DESIGN CHECKER Unavaila ble Balbir Talamantes MD Unavailable [phone] Geremias Blackwell MD Primary Care Provider [phone] Geremias Blackwell MD Unavailable [phone] Kwame Chandler MD Unavailable [phone] Kwame Chandler MD Unavailable [phone] Althea Carroll NP Unavailable Allergies Active [...] rifampin Rectal pain 07/10/2020 Overview (08/26/2023): IMPRESSION/PLANS [facility] 03/02 Ogla Reina is a 30 y.o. with anal [...] NIL Pap, + HR HPV (neg 16/18). Wells due by 11/26/19. 09/12/19 Wells Bx - PARUL 1, ECC - Neg. Cotest due 09/11/20. 09/06/20 NIL pap, neg HR HPV. Plan 3 year cotest 07/16/18 NIL pap, + HR HPV (not 16/18). Plan: cotest in 1 year 08/26/19 NIL Pap, + HR HPV (neg 16/18). Wells due by 11/26/19 09/12/19 Wells Bx - PARUL 1, ECC - Neg. [...] Type Department Care Team Description 06/01/2024 Telephone [facility] [address] [place] [address] Kwame Chandler MD Pt. 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 file Not on file Last Filed Vital Signs Vital Sign Reading Time Taken Comments Blood Pressure 118/78 03/28/2024 3:04 PM WELCOME WAGON HOST/HOSTESS Pulse 83 02/07/2024 8:59 AM CDT Temperature 36.6 C (97.9 F) 02/07/2024 8:59 AM CDT Respiratory Rate 18 02/07/2024 8:59 AM CDT Oxygen Saturation 95% 02/05/2024 4:54 PM CDT Inhaled Oxygen Concentration - - Weight 90.5 kg (199 lb 8 oz) 03/28/2024 3:04 PM WELCOME WAGON HOST/HOSTESS Height 154.9 cm (5' 1) 02/03/2024 10:06 [...] GYNECOLOGIC CYTOLOGY PANEL Routine 03/28/2024 3:12 PM WELCOME WAGON HOST/HOSTESS Mild dysplasia of cervix BASIC METABOLIC PANEL Routine 02/05/2024 6:49 AM CDT HIV ANTIGEN ANTIBODY COMBO Routine 08/27/2023 3:17 PM CDT care, subsequent , unspecified trimester HEPATITIS C SCREEN REFLEX TO HCV RNA QUANT AND GENOTYPE Routine 08/27/2023 3:17 PM CDT care, subsequent , unspecified trimester LIPID REFLEX TO DIRECT LDL PANEL Routine 04/08/2022 12:06 PM WELCOME WAGON HOST/HOSTESS Lipid screening from Last 3 Months or Most Recently Relevant to Health Maintenance Results * HPV and Gynecologic Cytology Panel - Recommended Age 30 - 65 Years (03/28/2024 3:12 PM WELCOME WAGON HOST/HOSTESS) Human Papilloma Virus 16 DNA Negative Negative 03/29/2024 1:19 PM WELCOME WAGON HOST/HOSTESS SPECIALTY LABS Human Papilloma Virus 18 DNA Negative Negative 03/29/2024 1:19 PM WELCOME WAGON HOST/HOSTESS SPECIALTY LABS Human Papilloma Virus Other Negative Negative 03/29/2024 1:19 PM WELCOME WAGON HOST/HOSTESS SPECIALTY LABS FINAL DIAGNOSIS This patient's sample is negative for high risk HPV DNA. METHODOLOGY: The BD Conecte Link system uses automated extraction, simultaneous amplification of [...] the same collection date. 03/29/2024 1:19 PM WELCOME WAGON HOST/HOSTESS MOLECULAR DIAGNOSTICS Brushing ENDOCERVICAL STRUCTURE / Unknown Non-blood Collection / Unknown 03/28/2024 3:12 PM WELCOME WAGON HOST/HOSTESS 03/28/2024 4:09 PM WELCOME WAGON HOST/HOSTESS us Kwame Chandler MD LAB - BLOOD ORDERABLES Final R esult SPECIALTY LABS Specialty Lab [address] [facility], [address], [place] [address] MOLECULAR DIAGNOSTICS Molecular Diagnostics [address] [facility], Room 3[place] [phone] * (ABNORMAL) Basic metabolic panel (02/05/2024 6:49 [...] - BLOOD ORDERABLES Fi nal Result LABORATORY [facility] Acute Care Lab [address] [facility] (1st floor, no room number) [place] [address] * HIV Antigen Antibody Combo (08/27/2023 3:17 PM CDT) [facility] HIV Antigen Antibody Combo Nonreactive Nonreactive 08/28/2023 [...] esult U LABORATORY [facility] [place] Core Lab [address] [facility], [address] [address] * Hepatitis C Screen Reflex to HCV [...] ORDERABLES Final R esult Performing Organization Address City/[facility]/ZIP Co de Phone Number U LABORATORY [facility] [place] Core Lab [address] [facility], [address] [address] * (ABNORMAL) Lipid panel reflex to direct LDL Non-fasting (04/08/2022 12:06 PM WELCOME WAGON HOST/HOSTESS) Cholesterol 239(H) <200 mg/dL 04/08/2022 3:27 PM WELCOME WAGON HOST/HOSTESS [facility] LAB[facility]AT[facility] Triglycerides 189(H) <150 mg/dL 04/08/2022 3:27 PM WELCOME WAGON HOST/HOSTESS [facility] Direct Measure HDL 44(L) >=50 mg/dL 04/08/2022 3:27 PM WELCOME WAGON HOST/HOSTESS [facility] LDL Cholesterol Calculated 157(H) <=100 mg/dL 04/08/2022 3:27 PM WELCOME WAGON HOST/HOSTESS [facility] Non HDL Cholesterol 195(H) <130 mg/dL 04/08/2022 3:27 PM WELCOME WAGON HOST/HOSTESS [facility] Blood STRUCTURE OF RIGHT UPPER LIMB / Unknown Venipuncture / Unknown 04/08/2022 12:06 PM WELCOME WAGON HOST/HOSTESS 04/08/2022 12:06 PM WELCOME WAGON HOST/HOSTESS Narrative [facility] - 04/08/2022 3:27 PM WELCOME WAGON HOST/HOSTESS Cholesterol Desirable: <200 mg/dL Triglycerides Normal: Less [...] Result U LABORATORY [facility] [place] Core Lab [address] [facility], [address] [place] [address], [facility] [phone] from Last 3 Months or Most Recently Relevant to Health Maintenance Insurance [facility] OUT OF STATE [facility] OUT OF STATE [facility] [employer] [place] [address] [facility] OUT OF STATE [facility] Advance Directives For more information, please contact: [phone] * Full Code (Latest Code Status on File) Date Activated Date Inactivated Comments 06/27/2021 9:48 AM 06/28/2021 3:52 PM All basic an d advanced life-sustaining interventions are performed as appropriate Question Answer Comments Code status determined by: Discussion with patie nt/ legal decision maker Care Teams Cook Boat Relationship Specialty Start Date End Date Geremias Blackwell MD [address] [place] [address] 220 [place] [address] PCP - General Internal Medicine 04/08/22 Tejal Chen APRN DESIGN CHECKER 420 [facility] [address] [place], [place] [address] Nurse Practitioner Nurse Practitioner 04/29/19 Balbir Talamantes MD 909 [place], [place] [address] Neurology 07/20/20 Geremias Blackwell MD [address] [place] [address] 220 [place] [address] Assigned PCP 04/19/22 Kwame Chandler MD [address] [address] service station helper 08/25/23 Kwame Chandler MD [address] [address] Assigned OBGYN Provider 10/04/23 Althea Carroll NP [address] [place] [address] [place] [address] Assigned Pediatric Specialist Provider 02/03/24
--- OUTSIDE RECORDS SUMMARY | 2024-08-01 22:25 | XMS_ITS | Encounter Summary ---
Author Organization [place] Address [address] [place] [address]. [place] [address] Care Team Providers Care Vp Revenue Cycle Name Role Phone Tejal Chen APRN SUPERVISOR KNITTING Unavaila ble Balbir Talamantes MD Unavailable [phone] Geremias Blackwell MD Primary Care Provider [phone] Geremias Blackwell MD Unavailable [phone] Kwame Chandler MD Unavailable [phone] Kwame Chandler MD Unavailable [phone] Althea Carroll NP Unavailable Michelle Dasilva RN Unavailable Unavailab le Encounter Details Date Type Department Care Team (Late st Contact Info) Description 08/26/2023 [facility] Medical Advice [facility] Women's [address] [place] [address] Rowan Shelton, RN Social History Tobacco Use [...] Answer Date Recorded PHQ-2 Score 0 04/08/2022 [place] Depression Scale Answer Date Recorded Last EPDS [...] 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 on file [...] documented as of this encounter Care Teams Vp Revenue Cycle Relationship Specialty Start Date End Date Geremias Blackwell MD [address] [place] [address] 220 [place] [address] PCP - General Internal Medicine 04/08/22 Tejal Chen APRN SUPERVISOR KNITTING [address] [place] [address] 450 [place], [place] [address] Nurse Practitioner Nurse Practitioner 04/29/19 Balbir Talamantes MD 909 [place], [place] [address] Neurology 07/20/20 Geremias Blackwell MD [address] [place] [address] 220 [place] [address] Assigned PCP 04/19/22 Kwame Chandler MD [address] [facility] 100 [place] [address] latex caster 08/25/23 Kwame Chandler MD [address] [facility] 100 [place] [address] Assigned OBGYN Provider 10/04/23 Althea Carroll NP [address] [place] [address] [address] [place] [address] Assigned Pediatric Specialist Provider 02/03/24 Michelle Dasilva, RN Lead Manager Post 02/08/24 02/22/24 documented as of this encounter
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
--- OUTSIDE RECORDS SUMMARY | 2024-08-01 22:25 | XMS_ITS | Encounter Summary ---
Author Organization [facility] Address [address] [place] [address] Care Team Providers Care Chief Engineer Name Role Phone Kwame Chandler MD Primary Care Provider + [phone] Tejal Chen APRN SHOP DIRECTOR Unavaila ble Kwame Chandler MD Unavailable [phone] Torri Donis PA-C Unavailable [phone] Balbir Talamantes MD Unavailable [phone] Jimmy Ayala MD Unavailable Karolina Zhao-C Unavailable Catracho Domingo MD Unavailable Unavailable Karolina Zhao-C Unavailable Nevaeh Gutierres PA-C Unavailable [phone] Geremias Blackwell MD Primary Care Provider [phone] Geremias Blackwell MD Unavailable [phone] wKame Chandler MD Unavailable + [phone] Kwame Chandler MD Unavailable [phone] Althea Carroll NP Unavailable Michelle Dasilva RN Unavailable Unavailab le Reason for Visit * Reason Onset Date Comments Care 03/13/2021 Encounter Details Date Type Department Care Team (Late st Contact Info) Description 03/13/2021 MyC Medical Advice [facility] [address] [place] [address] Kwame Chandler MD [address] [place] [address] Care Social History Tobacco Use Types Packs/Day [...] Answer Date Recorded PHQ-2 Score 0 07/11/2020 Lewis Depression Scale Answer Date Recorded Lewis Depression Score 15 01/07/2019 Last EPDS Self Harm Result Not on file 01/07 Comments Yes Sex and Gender Information Value Date Recorded Sex Assigned at Female 07/10/2018 9:24 AM CDT Legal Sex Female 8:37 AM CDT Gender Identity Female 07/10/2018 9:24 AM CDT Sexual Orientation Choose not to disclose 2018 9:24 AM CDT 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 No / Unsure 03/11/2021 1:42 PM BODY PIERCER documented as of this encounter Miscellaneous Notes * Telephone Encounter - Kwame Chandler MD - 03/15/2021 9:00 AM CST Yes, agree with letter. Please provide for Pt. 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 No greater than 20lbs? Letter started Ivelisse Bear HEALTH AND SAFETY INSTRUCTOR PIERCER documented in this encounter Plan of Treatment Not on file documented as of this encounter Visit Diagnoses Not on filedocumented in this encounter Additional Health Concerns Infection Onset Date Last Indicated Resolved Time Rule Out COVID-19 10/23/2023 10/23/2023 10/24/2023 11:55 AM CDT documented as of this encounter Care Teams Chief Engineer Relationship Specialty Start Date End Date Kwame Chandler MD PCP - General chainstitch binder 12/08/18 04/07/22 Geremias Blackwell MD [address] 220 [place] [address] PCP - General Internal Medicine 04/08/22 Tejal Chen APRN SHOP DIRECTOR [address] [place] [address] 450 [place] [address] Nurse Practitioner Nurse Practitioner 04/29/19 Kwame Chandler MD Assigned OBGYN Provider 02/03/20 Torri Donis PA-C [address] [place], [place] [address] Assigned Surgical Provider 06/27/20 07/27/21 Balbir Talamantes MD [address] [place] [address] Neurology 07/20/20 Jimmy Ayala MD [address] [place] [address] Assigned Neuroscience Provider 07/29/20 01/24/22 Karolina Zhao PA-C [address] [place] [address] Assigned PCP 11/18/20 03/16/21 Catracho Domingo MD Assigned PCP 03/17/21 04/13/21 Karolina Zhao PA-C [address] [place] [address] Assigned PCP 04/14/21 04/18/22 Nevaeh Gutierres PA-C [facility] [address] [place] [address] Assigned Neuroscience Provider 01/25/22 06/06/22 Geremias Blackwell MD [address] [place] [address] 220 [place] [address] Assigned PCP 04/19/22 Kwame Chandler MD [address] [address] chainstitch binder 08/25/23 Kwame Chandler MD [address] [address] Assigned OBGYN Provider 10/04/23 Althea Carroll NP [address] [place] [address] Assigned Pediatric Specialist Provider 02/03/24 Michelle Dasilva, RN Lead Investment Broker 02/08/24 02/22/24 documented as of this encounter
--- OUTSIDE RECORDS SUMMARY | 2024-08-01 22:25 | XMS_ITS | Encounter Summary ---
Author Organization [facility] Address [address] [place] [address]. [place] [address] Care Team Providers Care Telegraphic Typewriter Operator Chief Name Role Phone Tejal Chen APRN IRON HANDLER Unavaila ble Balbir Talamantes MD Unavailable [phone] Geremias Blackwell MD Primary Care Provider [phone] Geremias Blackwell MD Unavailable [phone] Kwame Chandler MD Unavailable [phone] Kwame Chandler MD Unavailable [phone] Althea Carroll NP Unavailable Reason for Visit * Reason Onset Date Comments Forms 04/20/2024 Encounter Details Date Type Department Care Team (Late st Contact Info) Description 04/20/2024 Telephone [facility]'s [facility] [address] [place] [address] Kwame Chandler MD [address] [place] [address] Forms Social History Tobacco Use Types Packs/Day [...] Answer Date Recorded PHQ-2 Score 4 03/31/2024 [place] Depression Scale Answer Date Recorded [place] Depression Scale Total 13 03/28/2024 The thought [...] in an abandoned building, in an overnight fpc, or couch-surfing.) No 02/03/2024 Are you worried [...] 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 Michelle Child CMA on 04/22/2024 at 10:07 AM IC HEALTH DOCTOR * Telephone Encounter - Camille Urena - 04/20/2024 12:30 PM CST Form received from: [employer] via fax Form requesting following info/need: STD MARK needed?: na Location of form: forms basket When completed the route for return: fax IC HEALTH DOCTOR documented in this encounter Plan of Treatment Not on file documented as of this encounter Visit Diagnoses Not on filedocumented in this encounter Additional Health Concerns Assessment Noted Time PHQ-9 Depression Total Score: 17 024 11:20 AM PUBLIC HEALTH DOCTOR documented as of this encounter Care Teams Telegraphic Typewriter Operator Chief Relationship Specialty Start Date End Date Geremias Blackwell MD [address] [place] [phone] PCP - General Internal Medicine 04/08/22 Tejal Chen, PRODUCT STRATEGY DIRECTOR IRON HANDLER [address] [place] [address] 450 [place], [place] [address] Nurse Practitioner Nurse Practitioner 04/29/19 Balbir Talamantes MD [address] [place] [address]68[address] Neurology 07/20/20 Geremias Blackwell MD [address] [place] [address] 220 [place] [address] Assigned PCP 04/19/22 Kwame Chandler MD [address] [facility] 100 [place] [address] unionmelt operator 08/25/23 Kwame Chandler MD [address] [facility] 100 [place] [address] Assigned OBGYN Provider 10/04/23 Althea Carroll NP [address] [place] [address] [address] [place], [place] [address] Assigned Pediatric Specialist Provider 02/03/24 documented as of this encounter
--- OUTSIDE RECORDS SUMMARY | 2024-08-01 22:25 | XMS_ITS | Encounter Summary ---
Author Organization [facility] Address [address] [place] [address]. [place] [address] Care Team Providers Care Player Development Manager Name Role Phone Tejal Chen APRN TEENAGE BABYSITTER Unavaila ble Balbir Talamantes MD Unavailable [phone] Geremias Blackwell MD Primary Care Provider [phone] Geremias Blackwell MD Unavailable [phone] Kwame Chandler MD Unavailable [phone] Kwame Chandler MD Unavailable [phone] Althea Carroll NP Unavailable Michelle Dasilva RN Unavailable Unavailab le Encounter Details Date Type Department Care Team (Late st Contact Info) Description 08/26/2023 [facility] [place] [facility] Women's [address] [place] [address] Ivelisse Burnett, RN Social History Tobacco Use [...] Answer Date Recorded PHQ-2 Score 0 04/08/2022 [place] Depression Scale Answer Date Recorded Last EPDS [...] 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 Not [...] documented as of this encounter Care Teams Player Development Manager Relationship Specialty Start Date End Date Geremias Blackwell MD [address] [place] [address] 220 [place] [address] PCP - General Internal Medicine 04/08/22 Tejal Chen APRN TEENAGE BABYSITTER 420 [facility] 450 [place], [place] [address] Nurse Practitioner Nurse Practitioner 04/29/19 Balbir Talamantes MD 9[address] [place], [place] 15[address] Neurology 07/20/20 Geremias Blackwell MD [address] [place] [address] 220 [place] [address] Assigned PCP 04/19/22 Kwame Chandler MD [facility] [address] Dionte [facility] 100 [place] [address] collator operator 08/25/23 Kwame Chandler MD [address] [facility] 100 [place] [address] Assigned OBGYN Provider 10/04/23 Althea Carroll NP [address] [place] [address] [address] [place] [address] Assigned Pediatric Specialist Provider 02/03/24 Michelle Dasilva, RN Lead Candy Feeder 02/08/24 02/22/24 documented as of this encounter
--- OUTSIDE RECORDS SUMMARY | 2024-08-01 22:25 | XMS_ITS | Encounter Summary ---
Author Organization [facility] Address [address] [place] [address]. [place] [address] Care Team Providers Care Dope Dry House Operator Name Role Phone Tejal Chen APRN CLINICAL GENETICIST Unavaila ble Balbir Talamantes MD Unavailable [phone] Geremias Blackwell MD Primary Care Provider [phone] Geremias Blackwell MD Unavailable [phone] Kwame Chandler MD Unavailable [phone] Kwame Chandler MD Unavailable [phone] Althea Carroll NP Unavailable Reason for Visit * Reason Onset Date Comments Pt. Information/instruction 06/01/2024 Encounter Details Date Type Department Care Team (Late st Contact Info) Description 06/01/2024 Telephone [facility] [address] [place] [address] Kwame Chandler MD [address] [place] [address] Pt. 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 Number [phone] and fax [phone]. Thanks Action Taken: Message routed to: Other: [facility] Travel Screening: Not Applicable IDE SALES ACCOUNT EXECUTIVE documented in this encounter Plan of Treatment Not on file documented as of this encounter Visit Diagnoses Not on filedocumented in this encounter Additional Health Concerns Assessment Noted Time PHQ-9 Depression Total Score: 17 024 11:20 AM OUTSIDE SALES ACCOUNT EXECUTIVE documented as of this encounter Care Teams Dope Dry House Operator Relationship Specialty Start Date End Date Geremias Blackwell MD [address] [place] [address] 220 [place] [address] PCP - General Internal Medicine 04/08/22 Tejal Chen APRN CLINICAL GENETICIST [address] [place] [address] 450 [place], [place] [address] Nurse Practitioner Nurse Practitioner 04/29/19 Balbir Talamantes MD 9[address] [place], [place] [address] Neurology 07/20/20 Geremias Blackwell MD [address] [place] [address] 220 [place] [address] Assigned PCP 04/19/22 Kwame Chandler MD [address] 100 [place] [address] professor sculpture 08/25/23 Kwame Chandler MD [address] [address] Assigned OBGYN Provider 10/04/23 [place] [address] [place] [address] [address] [place] [address] Assigned Pediatric Specialist Provider 02/03/24 documented as of this encounter
--- OUTSIDE RECORDS SUMMARY | 2024-08-01 22:25 | XMS_ITS | Encounter Summary ---
Author Organization [facility] Address [address] [place] [address] Care Team Providers Care Equity Trader Name Role Phone Kwame Chandler MD Primary Care Provider [phone] Tejal Chen APRN LIPSTICK MOLDER Unavaila ble Kwame Chandler MD Unavailable + [phone] Torri Donis PA-C Unavailable [phone] Balbir Talamantes MD Unavailable [phone] Jimmy Ayala MD Unavailable Karolina Zhao-C Unavailable Catracho Domingo MD Unavailable Unavailable Karolina ZhaoC Unavailable Nevaeh Gutierres-C Unavailable [phone] Geremias Blackwell MD Primary Care Provider [phone] Geremias Blackwell MD Unavailable [phone] Kwame Chandler MD Unavailable + [phone] Kwame [...] Answer Date Recorded PHQ-2 Score 4 03/31/2024 [place] Depression Scale Answer Date Recorded [place] Depression Scale Total 13 03/28/2024 The thought [...] in an abandoned building, in an overnight [place], or couch-surfing.) No 02/03/2024 Are you worried [...] 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 No / Unsure 04/08/2022 10:39 AM STOCK CAR DRIVER documented as of this encounter Plan of Treatment Not on file documented as of this encounter Visit Diagnoses Not on filedocumented in this encounter Additional Health Concerns Infection Onset Date Last Indicated Resolved Time Rule Out COVID-19 10/23/2023 10/23/2023 10/24/2023 11:55 AM CDT documented as of this encounter Care Teams Equity Trader Relationship Specialty Start Date End Date Kwame Chandler MD PCP - General mud mill tender 12/08/18 04/07/22 Geremias Blackwell MD [address] [place] [address] 220 [place] [address] PCP - General Internal Medicine 04/08/22 Tejal Chen APRN LIPSTICK MOLDER [address] [place] [address] 450 [place], [place] [address] Nurse Practitioner Nurse Practitioner 04/29/19 Kwame Chandler MD Assigned OBGYN Provider 02/03/20 Torri Donis, PALeidyC [address] 315 [place] [address] Assigned Surgical Provider 06/27/20 07/27/21 Balbir Talamantes MD 909 [place] [address] Neurology 07/20/20 Jimmy Ayala MD [address] [place] [address] Assigned Neuroscience Provider 07/29/20 01/24/22 Karolina Zhao PA-C [address] [place] [address] Assigned PCP 11/18/20 03/16/21 Catracho Domingo MD Assigned PCP 03/17/21 04/13/21 Karolina Zhao PA-C [address] [place] [address] Assigned PCP 04/14/21 04/18/22 Nevaeh Gutierres PA-C [facility] [address] [place] [address] Assigned Neuroscience Provider 01/25/22 06/06/22 Geremias Blackwell MD [address] [place] [address] 220 [place] [address] Assigned PCP 04/19/22 Kwame Chandler MD [address] [facility] 100 [place] [address] mud mill tender 08/25/23 Kwame Chandler MD [address] [facility] [address] [place] [address] Assigned OBGYN Provider 10/04/23 Althea Carroll NP [address] [place] [address] [address] [place] [address] Assigned Pediatric Specialist Provider 02/03/24 Michelle Dasilva, RN Lead Manager Infrastructure 02/08/24 02/22/24 documented as of this encounter
--- OUTSIDE RECORDS SUMMARY | 2024-08-01 22:25 | XMS_ITS | Encounter Summary ---
Author Organization [facility] Address [address] [place] [address] Care Team Providers Care Tug Boat Engineer Name Role Phone No Ref-Primary, Physician Primary Care Provider Kwame Chandler MD Primary Care Provider [phone] Tejal Chen EQUAL OPPORTUNITY ASSISTANT SECURITIES DEALER Unavaila ble Cheyenne Yeh DEATH CLAIM CLERK Unavailable [phone] Jennifer Cain CHW Unavailable [phone] Shruthi Alberto Unavailable Unavailable Kwame Chandler MD Unavailable [phone] Torri Donis PA-C Unavailable [phone] Balbir Talamantes MD Unavailable [phone] Jimmy Ayala MD Unavailable Catracho Domingo MD Unavailable Unavailable Chelsie Gallardo APRN SECURITIES DEALER Unavailable Un available Karolina Zhao-C Unavailable Catracho Domingo MD Unavailable Unavailable Karolina Zhao PA-C Unavailable Nevaeh Gutierres PA-C Unavailable [phone] Geremias Blackwell MD Primary Care Provider [phone] Geremias Blackwell MD Unavailable [phone] Kwame Chandler MD Unavailable [phone] Kwame Chandler MD Unavailable [phone] Althea Carroll NP Unavailable Michelle Dasilva RN Unavailable Unavailab Reason for Visit * Reason Onset Date Comments Care 09/06/2018 Encounter Details Date Type Department Care Team (Late st Contact Info) Description 09/06/2018 MyC Medical Advice [facility] [address] [facility] [address] [place] [address] Kwame Chandler MD [address] [facility] [address] [place] [address] Care Social History Tobacco Use [...] documented as of this encounter Care Teams Tug Boat Engineer Relationship Specialty Start Date End Date No Ref-Primary, Physician PCP - General 07/08/18 12/07/18 Kwame Chandler MD PCP - General critical care nurse 12/08/18 04/07/22 Geremias Blackwell MD [address] [place] [address] PCP - General Internal Medicine 04/08/22 Tejal Chen, LB SECURITIES DEALER 420 [facility] 450 [place] [address] Nurse Practitioner Nurse Practitioner 04/29/19 Cheyenne Yeh LSW 420 [facility] 450 [place] [address] Lead Remediation Technician Primary Care - CC 01/27/2003/13 Jennifer Cain CHW Community Health Worker Primary Care - CC 01/27/20 Shruthi Alberto Other (see comments) 01/30/20 03/25/20 Kwame Chandler MD Assigned OBGYN Provider 02/03/20 Torri Donis PA-C [address] [place] [address] 315 [place] [address] Assigned Surgical Provider 06/27/20 07/27/21 Balbir Talamantes MD 9 [place] [address] Neurology 07/20/20 Jimmy Ayala MD 6545 [place] [address] Assigned Neuroscience Provider 07/29/20 01/24/22 Catracho Domingo MD Assigned PCP 06/21/20 10/25/20 Chelsie Gallardo APRN SECURITIES DEALER Assigned PCP 10/26/20 11/17/20 Karolina Zhao PA-C [address] [place] [address] Assigned PCP 11/18/20 03/16/21 Catracho Domingo MD Assigned PCP 03/17/21 04/13/21 Karolina Zhao PA-C [address] [place] [address] Assigned PCP 04/14/21 04/18/22 Nevaeh Gutierres PA-C [facility] [address] [facility] [place] [address] Assigned Neuroscience Provider 01/25/22 06/06/22 Geremias Blackwell MD [address] [place] [address] [address] [place] [address] Assigned PCP 04/19/22 Kwame Chandler MD [address] [employer] [facility] 100 [place] [address] critical care nurse 08/25/23 Kwame Chandler MD [address] [employer] [facility] 100 [place] [address] Assigned OBGYN Provider 10/04/23 [place] [address] [place] [address] [address] [place], [place] [address] Assigned Pediatric Specialist Provider 02/03/24 Michelle Dasilva, TREVIN Lead Remediation Technician 02/08/24 02/22/24 documented as of this encounter
--- OUTSIDE RECORDS SUMMARY | 2024-08-01 22:25 | XMS_ITS | Encounter Summary ---
Author Organization [facility] Address [address] [place] [address]. [place] [address] Care Team Providers Care Substation Electrician Name Role Phone Tejal Chen APRN DRILL BIT SHARPENER Unavaila ble Balbir Talamantes MD Unavailable [phone] Geremias Blackwell MD Primary Care Provider [phone] Geremias Blackwell MD Unavailable [phone] Kwame Chandler MD Unavailable [phone] Kwame Chandler MD Unavailable [phone] Althea Carroll NP Unavailable Michelle Dasilva RN Unavailable Unavailab le Encounter Details Date Type Department Care Team (Late st Contact Info) Description 11/25/2023 [facility] Medical Advice [facility] Women's [address] [place] [address] Ivelisse Burnett, RN Social History Tobacco Use [...] Answer Date Recorded PHQ-2 Score 0 09/25/2023 [place] Depression Scale Answer Date Recorded Last EPDS [...] 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 on file Not on file documented as of this encounter Plan of Treatment Not on file documented as of this encounter Visit Diagnoses Not on filedocumented in this encounter Additional Health Concerns Assessment Noted Time PHQ-9 Depression Total Score: 5 08/10/19 22 4:13 PM CDT documented as of this encounter Care Teams Substation Electrician Relationship Specialty Start Date End Date Geremias Blackwell MD [address] [place] [address] 220 [place] [phone] PCP - General Internal Medicine 04/08/22 Tejal Chen APRN DRILL BIT SHARPENER [address] [place] [address] 450 [place], [place] [address] Nurse Practitioner Nurse Practitioner 04/29/19 Balbir Talamantes MD 909 [place], [place] [address] Neurology 07/20/20 Geremias Blackwell MD [address] [place] [address] 220 [place] [address] Assigned PCP 04/19/22 Kwame Chandler MD [address] [facility] 100 [place] [address] wood preparation supervisor 08/25/23 Kwame Chandler MD [address] [facility] [address] [place] [address] Assigned OBGYN Provider 10/04/23 Althea Carroll NP [address] [id number] [place], [place] [address]84[address] Assigned Pediatric Specialist Provider 02/03/24 Michelle Dasilva, RN Lead Driftman 02/08/24 02/22/24 documented as of this encounter
--- OUTSIDE RECORDS SUMMARY | 2024-08-01 22:25 | XMS_ITS | Encounter Summary ---
Author Organization [facility] Address [address] [place] [address] Care Team Providers Care Store Operations Specialist Name Role Phone Kwame Chandler MD Primary Care Provider [phone] Tejal Chen APRN BELL NECK HAMMERER Unavaila ble Cheyenne Yeh TOUR COUNSELOR Unavailable [phone] Jennifer Cain CHW Unavailable [phone] Shruthi Alberto Unavailable Unavailable Kwame Chandler MD Unavailable [phone] Torri DonisC Unavailable [phone] Balbir Talamantes MD Unavailable [phone] Jimmy Ayala MD Unavailable Catracho Domingo MD Unavailable Unavailable Chelsie Gallardo APRN BELL NECK HAMMERER Unavailable Un available Karolina ZhaoC Unavailable Catracho Domingo MD Unavailable Unavailable Karolina ZhaoC Unavailable Nevaeh Gutierres-C Unavailable [phone] Geremias Blackwell MD Primary Care Provider Geremias Blackwell MD Unavailable [phone] Kwame Chandler MD Unavailable [phone] Kwame Chandler MD Unavailable [phone] Althea Carroll NP Unavailable Michelle Dasilva RN Unavailable Unavailab le Reason for Referral * Consultation (Routine) - Closed Specialty Diagnoses / Procedures Referred By Mila corley Referred To Contact Diagnoses Hemorrhoids, unspecified hemorrhoid type Kwame Chandler MD Phone: tel: fax: MULTIPLE LOCATIONS Referral ID Status Reason Start Date Expiration Date Visits Re quested Visits Authorized [id number] Closed 04/26/2019 04/25/2020 1 1 Comments Your provider has referred you to: [facility]: [facility] [place] [email or web address] N: Colon and Rectal Surgery [facility] [email or web address] [place] [email or web address] [place] [email or web address] [facility]: [facility] [place] [email or web address] [place] [email or web address] Referral Reason(s): Hemorrhoids Special Concerns: sickle cell [...] where they were done to arrange for leaf size picker prior to your scheduled appointment. (2) List of current medications (3) This referral request (4) Any documents/labs given to you for this referral RESS ENGINEER Reason for Visit * Reason Onset Date Comments Referral 04/23/2019 Encounter Details Date Type Department Care Team (Late st Contact Info) Description 04/23/2019 MyC Medical Advice [facility] [address] [facility] [address] [place] [address] Kwame Chandler MD [address] [facility] [address] [place], [place] [address] Referral Social History Tobacco Use Types Packs/Day Years Used Date Smoking Tobacco: Never Smokeless Tobacco: Never Alcohol Use Standard Drinks/Week Comments No 0 (1 standard drink = 0.6 oz pur e alcohol) AUDIT-C Answer Date Recorded Frequency of Alcohol Consumption Never 07/08/2018 Average Number of Drinks Not on file 019 Frequency of Binge Drinking Not on file 06/12 [place] Depression Scale Answer Date Recorded [place] Depression Score 15 01/07/2019 Last EPDS Self [...] appt with colorectal surgery for symptomatic hemorrhoids. RESS ENGINEER * Telephone Encounter - Analia Navarro RN - 04/25/2019 4:38 PM CST Please address the my chart message. Holly Navarro RN RESS ENGINEER documented in this encounter Plan of Treatment [...] documented as of this encounter Care Teams Store Operations Specialist Relationship Specialty Start Date End Date Kwame Chandler MD PCP - General machine puller and laster 12/08/18 04/07/22 Geremias Blackwell MD [address] [place] [address] PCP - General Internal Medicine 04/08/22 Tejal Chen APRN BELL NECK HAMMERER [address] [place] [address] 045285 Nurse Practitioner Nurse Practitioner 04/29/19 Cheyenne Yeh LSW [address] 7138[address] Lead City Attorney Primary Care - CC 01/27/2003/13 Jennifer Cain [facility] Community Health Worker Primary Care - CC 01/27/20 Shruthi Alberto Other (see comments) 01/30/20 03/25/20 Kwame Chandler MD Assigned OBGYN Provider 02/03/20 Torri Donis PA-C [address] [place] [address] Assigned Surgical Provider 06/27/20 07/27/21 Balbir Talamantes MD 909 [place] [address] Neurology 07/20/20 Jimmy Ayala MD [address] [place] [address] Assigned Neuroscience Provider 07/29/20 01/24/22 Catracho Domingo MD Assigned PCP 06/21/20 10/25/20 Chelsie Gallardo APRN [facility] Assigned PCP 10/26/20 11/17/20 Karolina Zhao PA-C [address] [place] [address] Assigned PCP 11/18/20 03/16/21 Catracho Domingo MD Assigned PCP 03/17/21 04/13/21 Karolina Zhao PA-C [address] [place] [address] Assigned PCP 04/14/21 04/18/22 Nevaeh Gutierres PA-C [facility] [address] [place] [address] Assigned Neuroscience Provider 01/25/22 06/06/22 Geremias Blackwell MD [address] [place] [address] [address] [place] [address] Assigned PCP 04/19/22 Kwame Chandler MD [address] [facility] 100 [place] [address] machine puller and laster 08/25/23 Kwame Chandler MD [address] [facility] 100 [place] [address] Assigned OBGYN Provider 10/04/23 Althea Carroll NP [address] [place] [address] [address] [place] [address] Assigned Pediatric Specialist Provider 02/03/24 Michelle Dasilva, RN Lead City Attorney 02/08/24 02/22/24 documented as of this encounter
--- OUTSIDE RECORDS SUMMARY | 2024-08-01 22:25 | XMS_ITS | Encounter Summary ---
Author Organization [facility] Address [address] [place] [address] Care Team Providers Care Quilt Maker Name Role Phone Kwame Chandler MD Primary Care Provider [phone] Tejal Chen APRN TARIFF CLERK Unavaila ble Cheyenne Yeh STREET LIGHT CLEANER Unavailable [phone] Jennifer Cain CHW Unavailable [phone] Shruthi Alberto Unavailable Unavailable Kwame Chandler MD Unavailable [phone] Torri DonisC Unavailable [phone] Balbir Talamantes MD Unavailable [phone] Jimmy Ayala MD Unavailable Catracho Domingo MD Unavailable Unavailable Chelsie Gallardo APRN TARIFF CLERK Unavailable Un available Karolina ZhaoC Unavailable Catracho Domingo MD Unavailable Unavailable Karolina ZhaoC Unavailable Nevaeh Gutierres-C Unavailable [phone] Geremias Blackwell MD Primary Care Provider Geremias Blackwell MD Unavailable [phone] Kwame Chandler MD Unavailable [phone] Kwame Chandler MD Unavailable [phone] Althea Carroll NP Unavailable Michelle Dasilva RN Unavailable Unavailab le Encounter Details Date Type Department Care Team (Late st Contact Info) Description 09/28/2019 Orders Only [facility] [address] [facility] [address] [place] [address] Debbie [...] Answer Date Recorded PHQ-2 Score 2 06/16/2019 [place] Depression Scale Answer Date Recorded [place] Depression Score 15 01/07/2019 Last EPDS Self [...] documented as of this encounter Care Teams Quilt Maker Relationship Specialty Start Date End Date Kwame Chandler MD PCP - General vp of marketing 12/08/18 04/07/22 Geermias Blackwell MD [address] [place] [address] PCP - General Internal Medicine 04/08/22 Tejal Chen APRN TARIFF CLERK [address] [place] [address] Nurse Practitioner Nurse Practitioner 04/29/19 Cheyenne Yeh LSW [address] 577545 Lead Skiver Counter Primary Care - CC 01/27/2003/13 Jennifer Cain, [facility] Community Health Worker Primary Care - CC 01/27/20 Shruthi Alberto Other (see comments) 01/30/20 03/25/20 Kwame Chandler MD Assigned OBGYN Provider 02/03/20 Torri Donis, PALeidyC [address] [place], [place] 9[address] Assigned Surgical Provider 06/27/20 07/27/21 Balbir Talamantes MD [address] [place] [address] 492875 Neurology 07/20/20 Jimmy Ayala MD [address] [place] [address] Assigned Neuroscience Provider 07/29/20 01/24/22 Catracho Domingo MD Assigned PCP 06/21/20 10/25/20 Chelsie Gallardo APRN TARIFF CLERK Assigned PCP 10/26/20 11/17/20 Karolina Zhao PA-C [address] [place] [address] Assigned PCP 11/18/20 03/16/21 Catracho Domingo MD Assigned PCP 03/17/21 04/13/21 Karolina Zhao PA-C [address] [place] [address] Assigned PCP 04/14/21 04/18/22 Nevaeh Gutierres PA-C [facility] [address] [place] [address] Assigned Neuroscience Provider 01/25/22 06/06/22 Geremias Blackwell MD [address] [address] [place] [address] Assigned PCP 04/19/22 Kwame Chandler MD [address] [facility] [address] [place] [address] vp of marketing 08/25/23 Kwame Chandler MD [address] [facility] [address] [place] [address] Assigned OBGYN Provider 10/04/23 Althea Carroll NP [address] [place] [address] [place] [address] Assigned Pediatric Specialist Provider 02/03/24 Michelle Dasilva, RN Lead Skiver Counter 02/08/24 02/22/24 documented as of this encounter
--- OUTSIDE RECORDS SUMMARY | 2024-08-01 22:25 | XMS_ITS | Encounter Summary ---
Author Organization [facility] Address [address] [place] [address] Care Team Providers Care Patient Portal Concierge Name Role Phone Kwame Chandler MD Primary Care Provider [phone] Tejal Chen APRN NATIONAL PARK TOUR GUIDE Unavaila ble Cheyenne Yeh HEATER MECHANIC Unavailable [phone] Jennifer Cain CHW Unavailable [phone] Shruthi Alberto Unavailable Unavailable Kwame Chandler MD Unavailable [phone] Torri DonisC Unavailable [phone] Balbir Talamantes MD Unavailable [phone] Jimmy Ayala MD Unavailable Catracho Domingo MD Unavailable Unavailable Chelsie Galalrdo APRN NATIONAL PARK TOUR GUIDE Unavailable Un available Karolina ZhaoC Unavailable Catracho Domingo MD Unavailable Unavailable Karolina ZhaoC Unavailable Nevaeh Gutierres-C Unavailable [phone] Geremias Blackwell MD Primary Care Provider Geremias Blackwell MD Unavailable [phone] Kwame Chandler MD Unavailable [phone] Kwame Chandler MD Unavailable [phone] Althea Carroll NP Unavailable Michelle Dasilva RN Unavailable Unavailab le Encounter Details Date Type Department Care Team (Late st Contact Info) Description 12/28/2018 Orders Only [facility] [address] [place] [address] Kwame Chandler MD [address] [place] [address] [place] [address] Pre-operative laboratory examination (Primary Dx) Social History [...] Nonreactive NR^Nonrea ctive 01/03/2019 2:05 PM CDT [facility] Blood specimen (specimen) 01/03/2019 7:30 AM CDT 01/03/2019 7:34 AM CDT us Kwame Chandler MD LAB - BLOOD ORDERABLES Final R esult [facility] [address] [place] [address] * Hemoglobin (01/03/2019 7:30 AM CDT) Hemoglobin 12.8 11.7 - 15.7 g/dL 01/03/2019 7:37 AM CDT [facility] Blood specimen (specimen) 01/03/2019 7:30 AM CDT 01/03/2019 7:34 AM CDT us Kwame Chandler MD LAB - BLOOD ORDERABLES Final R esult Performing Organization Address [facility] Co de Phone Number [facility] [address] [place] [address], [facility] [phone] * ABO/Rh type and screen (01/03/2019 7:30 AM CDT) ABO O 01/03/2019 8:20 AM CDT [facility] RH(D) Pos [facility] Antibody Screen Neg 01/03/2019 8:20 AM CDT [facility] Test Valid Only At [facility] 01/03/2019 8:22 AM CDT [facility] Specimen Expires 01/06/2019 01/03/2019 8:22 AM CDT [facility] Blood specimen (specimen) 01/03/2019 7:30 AM CDT 01/03/2019 7:35 AM CDT us Kwame Chandler MD LAB - BLOOD BANK TEST ORDER Fi nal Result Performing Organization Address [facility] Co de Phone Number [facility] [address] [place] [address], [facility] [phone] documented in this encounter Visit Diagnoses Diagnosis Pre-operative laboratory examination- Primary Pre-procedural laboratory examination documented in this encounter Additional Health Concerns Infection Onset Date Last Indicated Resolved Time Rule Out COVID-19 10/23/2023 10/23/2023 10/24/2023 11:55 AM CDT documented as of this encounter Care Teams Patient Portal Concierge Relationship Specialty Start Date End Date Kwame Chandler MD PCP - General ranch hand livestock 12/08/18 04/07/22 Geremias Blackwell MD [address] [place] [address] PCP - General Internal Medicine 04/08/22 Tejal Chen APRN NATIONAL PARK TOUR GUIDE [address] 579[address] Nurse Practitioner Nurse Practitioner 04/29/19 Cheyenne Yeh LSW [address] 417[address] Lead Carrier Associate Primary Care - CC 01/27/2003/13 Jennifer Cain [facility] Community Health Worker Primary Care - CC 01/27/20 Shruthi Alberto Other (see comments) 01/30/20 03/25/20 Kwame Chandler MD Assigned OBGYN Provider 02/03/20 Torri Donis, PA-C [address] [place] [address] Assigned Surgical Provider 06/27/20 07/27/21 Balbir Talamantes MD [address] [place] [address] 810595 Neurology 07/20/20 Jimmy Ayala MD [address] [place] [address] Assigned Neuroscience Provider 07/29/20 01/24/22 Catracho Domingo MD Assigned PCP 06/21/20 10/25/20 Chelsie Gallardo APRN [facility] Assigned PCP 10/26/20 11/17/20 Karolina Zhao PA-C [address] [place] [address] Assigned PCP 11/18/20 03/16/21 Catracho Domingo MD Assigned PCP 03/17/21 04/13/21 Karolina Zhao PA-C [address] [place] [address] Assigned PCP 04/14/21 04/18/22 Nevaeh Gutierres PA-C [facility] [address] [place] [address] Assigned Neuroscience Provider 01/25/22 06/06/22 Geremias Blackwell MD [address] [place] [address] [address] [place] [address] Assigned PCP 04/19/22 Kwame Chandler MD [address] [address] ranch hand livestock 08/25/23 Kwame Chandler MD [address] [address] Assigned OBGYN Provider 10/04/23 Althea Carroll NP [address] [place] [address] [place] [address] Assigned Pediatric Specialist Provider 02/03/24 Michelle Dasilva, RN Lead Carrier Associate 02/08/24 02/22/24 documented as of this encounter
--- OUTSIDE RECORDS SUMMARY | 2024-08-01 22:25 | XMS_ITS | Encounter Summary ---
Author Organization [facility] Address [address] [place] [address]. [place] [address] Care Team Providers Care Tong Hooker Name Role Phone Kwame Chandler MD Primary Care Provider [phone] Tejal Chen APRN BURNER HAND Unavaila ble Kwame Chandler MD Unavailable [phone] Torri Donis PA-C Unavailable [phone] Balbir Talamantes MD Unavailable [phone] Jimmy Ayala MD Unavailable Karolina Zhao PA-C Unavailable Nevaeh Gutierres PA-C Unavailable [phone] Geremias Blackwell MD Primary Care Provider [phone] Geremias Blackwell MD Unavailable [phone] Kwame Chandler MD Unavailable [phone] Kwame Chandler MD Unavailable [phone] Althea Carroll NP Unavailable Michelle Dasilva RN Unavailable Unavailab Encounter Details Date Type Department Care Team (Late st Contact Info) Description 05/08/2021 [facility] [address] [place] [address] [place] [address] Kwame Chandler MD [address] [facility] [address] [place] [address] Social History Tobacco Use Types Packs/Day Years [...] Answer Date Recorded PHQ-2 Score 0 07/11/2020 [place] Depression Scale Answer Date Recorded [place] Depression Score 15 01/07/2019 Last EPDS Self Harm Result Not on file 01/07 Comments Yes Sex and Gender Information Value Date Recorded Sex Assigned at Female 07/10/2018 9:24 AM CDT Legal Sex Female 8:37 AM CDT Gender Identity Female 07/10/2018 9:24 AM CDT Sexual Orientation Choose not to disclose 2018 9:24 AM CDT Occupation Industry Job Start Date Job End Date [employer] Not on file Not on file Not on file COVID-19 Exposure Response Date Recorded In the last month, have you been in contact with someone who was confirmed or suspected to have Coronavirus / COVID-19? No / Unsure 05/08/2021 1:52 PM STRATEGY ANALYST documented as of this encounter Plan of Treatment Not on file documented as of this encounter Visit Diagnoses Not on filedocumented in this encounter Additional Health Concerns Infection Onset Date Last Indicated Resolved Time Rule Out COVID-19 10/23/2023 10/23/2023 10/24/2023 11:55 AM CDT documented as of this encounter Care Teams Tong Hooker Relationship Specialty Start Date End Date Kwame Chandler MD PCP - General mechanical engineering officer 12/08/18 04/07/22 Geremias Blackwell MD [address] [place] [address] [address] [place] [address] PCP - General Internal Medicine 04/08/22 Tejal Chen APRN CNP [address] [place] [address] 450 [place], [place] [address] Nurse Practitioner Nurse Practitioner 04/29/19 Kwame Chandler MD Assigned OBGYN Provider 02/03/20 Torri Donis PA-C [address] [place] [address] Assigned Surgical Provider 06/27/20 07/27/21 Balbir Talamantes MD [address] [place] [address] Neurology 07/20/20 Jimmy Ayala MD [address] [place] [address] Assigned Neuroscience Provider 07/29/20 01/24/22 Karolina Zhao PA-C [address] [place] [address] Assigned PCP 04/14/21 04/18/22 Nevaeh Gutierres PA-C [facility] [address] [place] [address] Assigned Neuroscience Provider 01/25/22 06/06/22 Geremias Blackwell MD [address] [place] [address] Assigned PCP 04/19/22 Kwame Chandler MD [address] [address] mechanical engineering officer 08/25/23 Kwame Chandler MD [address] [address] Assigned OBGYN Provider 10/04/23 Althea Carroll NP [address] [place] [address] [address] [place] [address] Assigned Pediatric Specialist Provider 02/03/24 Michelle Dasilva RN Lead Assembler Musical Equipment 02/08/24 02/22/24 documented as of this encounter
--- OUTSIDE RECORDS SUMMARY | 2024-08-01 22:25 | XMS_ITS | Encounter Summary ---
Author Organization [facility] Address [address] [place] [address] Care Team Providers Care Supervisor Poultry Hatchery Name Role Phone Kwame Chandler MD Primary Care Provider [phone] Tejal Chen APRN SUSTAINABLE DESIGN COORDINATOR Unavaila ble Kwame Chandler MD Unavailable + [phone] Torri Donis PA-C Unavailable [phone] Balbir Talamantes MD Unavailable [phone] Jimmy Ayala MD Unavailable Catracho Domingo MD Unavailable Unavailable Chelsie Gallardo APRN SUSTAINABLE DESIGN COORDINATOR Unavailable Un available Karolina ZahoC Unavailable Catracho Domingo MD Unavailable Unavailable Karolina Zhao-C Unavailable Nevaeh Gutierres PA-C Unavailable [phone] Geremias Blackwell MD Primary Care Provider [phone] Geremias Blackwell MD Unavailable [phone] Kwame Chandler MD Unavailable + [phone] Kwame Chandler MD Unavailable + [phone] Althea Carroll NP Unavailable Michelle Dasilva RN Unavailable Unavailab le Encounter Details Date Type Department Care Team (Late st Contact Info) Description 08/27/2020 MyC Medical Advice [facility] [address] [facility] [address] [place] [address] Kisha Pennington RN Social History [...] Answer Date Recorded PHQ-2 Score 0 07/11/2020 [place] Depression Scale Answer Date Recorded [place] Depression Score 15 01/07/2019 Last EPDS Self [...] documented as of this encounter Care Teams Supervisor Poultry Hatchery Relationship Specialty Start Date End Date Kwame Chandler MD PCP - General hogshead weigher 12/08/18 04/07/22 Geremias Blackwell MD [address] [place] [address] [address] [place] [address] PCP - General Internal Medicine 04/08/22 Tejal Chen APRN SUSTAINABLE DESIGN COORDINATOR [address] [place] [address] 450 [place] [address] Nurse Practitioner Nurse Practitioner 04/29/19 Kwame Chandler MD Assigned OBGYN Provider 02/03/20 Torri Donis PA-C [address] [place] [address] Assigned Surgical Provider 06/27/20 07/27/21 Balbir Talamantes MD [address] [place] [address] Neurology 07/20/20 Jimmy Ayala MD [address]45 [place] [address] Assigned Neuroscience Provider 07/29/20 01/24/22 Catracho Domingo MD Assigned PCP 06/21/20 10/25/20 Chelsie Gallardo APRN SUSTAINABLE DESIGN COORDINATOR Assigned PCP 10/26/20 11/17/20 Karolina Zhao PA-C [address] [place] [address] Assigned PCP 11/18/20 03/16/21 Catracho Domingo MD Assigned PCP 03/17/21 04/13/21 Karolina Zhao PA-C [address] [place] [address] Assigned PCP 04/14/21 04/18/22 Nevaeh Gutierres PA-C [facility] [address] [facility] [place] [address] Assigned Neuroscience Provider 01/25/22 06/06/22 Geremias Blackwell MD [address] [place] [address] 220 [place] [address] Assigned PCP 04/19/22 Kwame Chandler MD [address] [place] [address] [address] hogshead weigher 08/25/23 Kwame Chandler MD [address] [address] Assigned OBGYN Provider 10/04/23 Althea Carroll NP [facility] [place] [address] [place], [place] [address] Assigned Pediatric Specialist Provider 02/03/24 Michelle Dasilva, RN Lead Museum Exhibit Designer 02/08/24 02/22/24 documented as of this encounter
[2024-08-01 22:44] LABS: Strep A DNA Probe* DETECTED (Not Detectd)
== END 2024-08-01 23:00 | disposition home or self-care (01) ==
PROVIDERS: Emergency Provider Family Medicine
DX: J02.0 Streptococcal pharyngitis (principal)
CPT/HCPCS: 71045; 87631; 87651; 99283; 99284